=== PATIENT | female | born 1970 | race Caucasian/White ===

== ENCOUNTER 2016-06-23 15:11 | Emergency (ER) | payer OTHER ==
[2016-06-23] MEDS ORDERED: methylPREDNISolone SOD SUCCI 125 MG/2 ML VIAL IV STA (15:48)
[2016-06-23] MEDS ORDERED: FAMOTIDINE 20 MG/2 ML VIAL IV STA (15:49)
[2016-06-23] MEDS ORDERED: IPRATROPIUM-ALBUTEROL 3 ML NEB INHALATION STA ×3 (15:49→15:52)
[2016-06-23] MEDS ORDERED: diphenhydrAMINE 50 MG/ML 1 ML VIAL IVP STA (15:49)
--- NOTE | 2016-06-23 16:06 | ED ---
SOB HPI - General Chief Complaint: Shortness of Breath Stated Complaint: cough/poss reaction to dust Time Seen by Provider: 06/23/16 15:17 Source: patient Mode of arrival: wheelchair Limitations: no limitations - History of Present Illness Initial Comments: 45-year-old female with a past medical history of asthma with multiple environmental triggers presenting for evaluation of shortness of breath. She states that she was on her way to see her environmental communications specialist and got in the elevator which was filled with dust and chemicals from construction in and around the building. She states in the brief duration of the elevator ride she developed shortness of breath, wheezing, and an urticarial rash across her entire upper body. She was seen briefly by her environmental communications specialist who gave her a steroid depot shot, Benadryl, and a DuoNeb breathing treatment. Her symptoms improved but persisted and she was sent to the ED for further evaluation. She states that she has had similar attacks in the past but none were this bad. She further states that she was going to see her environmental communications specialist for a persistent cough over the last few weeks. She denies any productivity to the cough and that it is different than the current cough she has at this time. She has been trialed on 2 courses of a Z-Hernan and to Medrol Dosepak without improvement in her cough. - Related Data Home Medications Medication Instructions Recorded Confirmed Esomeprazole Magnesium [NexIUM] 40 mg PO DAILY PRN 02/24/16 06/23/16 Multivitamins, Thera [Multivitamin] 1 tab PO DAILY 02/24/16 06/23/16 Albuterol Inhaler [Ventolin Hfa 2 puff INHALATION RT-QID PRN 06/23/16 06/23/16 Inhaler] Albuterol Nebulized [Ventolin 2.5 mg INHALATION RT-QID PRN 06/23/16 06/23/16 Nebulized] Mometasone/Formoterol [Dulera 200 2 puff INHALATION RT-BID 06/23/16 06/23/16 Mcg/5 Mcg Inhaler] Previous Rx's Medication Instructions Recorded predniSONE 40 mg PO DAILY #10 tab 06/23/16 Allergies Allergy/AdvReac Type Severity Reaction Status Date / Time acetaminophen [From Vicodin] Allergy Rash/Hives Verified 06/23/16 15:33 cefazolin sodium Allergy Rash/Hives Verified 06/23/16 15:33 [From Kefzol] clarithromycin [From Biaxin] Allergy Rash/Hives Verified 06/23/16 15:33 fentanyl Allergy Rash/Hives Verified 06/23/16 15:33 hydrocodone bitartrate Allergy Rash/Hives Verified 06/23/16 15:33 [From Vicodin] morphine Allergy Rash/Hives Verified 06/23/16 15:33 pentazocine lactate Allergy Rash/Hives Verified 06/23/16 15:33 [From Talwin] Review of Systems ROS Statement: Those systems with pertinent positive or pertinent negative responses have been documented in the HPI. ROS Other: All systems not noted in ROS Statement are negative. Constitutional: Denies: fever, chills, weakness, weight change, night sweats Eyes: Denies: eye pain, eye discharge, vision change ENT: Denies: ear pain, throat pain, congestion Respiratory: Reports: cough, dyspnea, wheezes. Denies: hemoptysis, stridor Cardiovascular: Denies: chest pain, palpitations, dyspnea on exertion, edema, syncope Gastrointestinal: Denies: abdominal pain, nausea, vomiting Genitourinary: Denies: urgency, dysuria Musculoskeletal: Denies: back pain, arthralgia Skin: Reports: rash, lesions, change in color Neurological: Denies: headache, weakness, numbness, paresthesias Psychiatric: Denies: anxiety, depression Past Medical History Past Medical History: Asthma, Deep Vein Thrombosis (DVT), GERD/Reflux, Pneumonia Additional Past Medical History / Comment(s): migraines, hx dvt rt arm, anemia History of Any Multi-Drug Resistant Organisms: None Reported Past Surgical History: Appendectomy, Orthopedic Surgery, Tubal Ligation Additional Past Surgical History / Comment(s): left knee arthroscopy, left hand surgery-trigger finger Past Anesthesia/Blood Transfusion Reactions: Previous Problems w/ Anesthesia Additional Past Anesthesia/Blood Transfusion Reaction / Comment(s): "relaxing medication makes me more anxious" Past Psychological History: No Psychological Hx Reported Smoking Status: Never smoker Past Alcohol Use History: Occasional Past Drug Use History: None Reported - Past Family History Father Family Medical History: Cancer General Exam Limitations: no limitations General appearance: alert, in no apparent distress Head exam: Present: atraumatic, normocephalic, normal inspection Eye exam: Present: normal appearance, PERRL, EOMI Pupils: Present: normal accommodation. Absent: irregular, unequal ENT exam: Present: normal exam, normal oropharynx, mucous membranes moist. Absent: mucous membranes dry Neck exam: Present: normal inspection, full ROM. Absent: tenderness Respiratory exam: Present: wheezes (Bibasilar). Absent: respiratory distress ( Positive cough throughout exam), rhonchi, stridor, chest wall tenderness, accessory muscle use Cardiovascular Exam: Present: normal rhythm, tachycardia, normal heart sounds. Absent: irregular rhythm GI/Abdominal exam: Present: soft. Absent: distended, tenderness, guarding, rebound, rigid Rectal exam: Present: deferred Extremities exam: Present: normal inspection, full ROM. Absent: tenderness Back exam: Absent: normal inspection, full ROM, tenderness Neurological exam: Present: alert, altered, oriented X3, CN II-XII intact Skin exam: Present: warm, dry, intact, rash, erythema, urticaria. Absent: cyanosis, pallor Course Vital Signs 06/23/16 06/23/16 06/23/16 15:12 16:17 16:43 Temperature 97.7 F Pulse Rate 120 H 120 H 120 H Respiratory 24 Rate Blood Pressure 136/90 O2 Sat by Pulse 99 Oximetry 06/23/16 17:32 Temperature 98.1 F Pulse Rate 129 H Respiratory 20 Rate Blood Pressure 131/72 O2 Sat by Pulse 98 Oximetry Medical Decision Making - Medical Decision Making 45-year-old female with past medical history of asthma and multiple environmental ALLERGIES presented for evaluation of acute onset shortness of breath after coming in contact with airborne dust and chemicals inside an enclosed space (elevator). She was treated with Benadryl, DuoNeb, and depot steroids prior to coming to the ED with improvement in symptoms but persistent cough and tight sensation in chest. She has had previous asthma exacerbations similar to this although not quite as severe. Physical examination revealed mild wheezes in bilateral lower lobes, urticarial rash across the upper extremities, upper chest, and neck. Patient is coughing throughout exam but is in no respiratory distress and is able to hold conversation with complete sentences and without audible wheezing. There is no accessory muscle use. We' ll provide patient with DuoNeb treatments 3, Benadryl, Pepcid, and Solu- Medrol. We'll also obtain a chest x-ray as she states that although she has been treated with 2 doses of anabiotic some steroids prior to her visit today she has not had a chest x-ray and some time. Influenza swab will not be obtained today as she is outside to 48 hours and treatment would not be beneficial. Patient reevaluated and had marketed improvement in her symptoms. The rash had resolved and there were no more wheezes. Chest x-ray revealed no significant abnormalities. She was informed of this result and that she would be discharged with instructions to follow-up with her primary care physician and a repeat appointment with her environmental communications specialist. She will also be given a prescription for a five-day course of steroids and advised that on her return to the office she should take appropriate precautions to avoid any environmental allergens. She was also advised to return to this facility if her symptoms should return, worsen, or persist. She acknowledged an understanding of this information and agreed with this plan of care. Disposition Clinical Impression: Asthma exacerbation, Shortness of breath, Cough, Allergic reaction Disposition: HOME SELF-CARE Condition: Stable Instructions: Asthma (ED), Urticaria (ED), General Allergic Reaction (ED) Additional Instructions: Please use medication as discussed. Please follow up with family doctor if symptoms have not improved over the next two days. Please return to the emergency room if your symptoms increase or worsen or for any other concerns. Prescriptions: predniSONE 40 mg PO DAILY #10 tab Referrals: Nicola Villa MD [Primary Care Provider] - 1-2 days Time of Disposition: 17:18
--- NOTE | 2016-06-23 17:14 | XR ---
EXAMINATION TYPE: XR chest 2V DATE OF EXAM: 06/23/2016 5:06 PM COMPARISON: NONE HISTORY: Cough TECHNIQUE: Frontal and lateral views of the chest are obtained. FINDINGS: Heart and mediastinum are normal. Lungs are clear. Diaphragm is normal. Bony thorax is int act. Pulmonary vascularity is normal. IMPRESSION: Normal chest. No change.
[2016-06-23 17:34] VITALS: BP 131/72; PULSE 129; RESP 20; TEMP 98.1
== END 2016-06-23 17:34 | disposition home or self-care (01) ==
LOC: EC 15:11
DX: J45.901 Unspecified asthma with (acute) exacerbation (principal); T78.49XA Other allergy, initial encounter; X58.XXXA Exposure to other specified factors, initial encounter; L50.9 Urticaria, unspecified; Z88.6 Allergy status to analgesic agent; Z88.1 Allergy status to other antibiotic agents; Z88.5 Allergy status to narcotic agent; Z88.8 Allergy status to other drugs, medicaments and biological substances; Z86.718 Personal history of other venous thrombosis and embolism
CPT/HCPCS: 94640; 71020; 99285; 96374; 96375; J1200; J2930

== ENCOUNTER → 2016-07-12 | Outpatient (CLI) | payer OTHER ==
[2016-07-17 19:10] LABS: Alternaria tenius IgG 5.1 mcg/mL (< 13.6); Cladosporium herbarium IgG 22.7 mcg/mL (< 14.7); Phoma ssp. IgG 3.2 mcg/mL (< 6.6); Saccaharomospora viridis Not detected (Not detected); Saccaharopoly. rectivirgula Not detected (Not detected)
[2016-07-22 12:34] LABS: Mis test requested (Blood) FUNGAL ABS PANEL
== END ==
LOC: LABWHC1 11:42
PROVIDERS: ATTEND Internal Medicine Critical Care Medicine
DX: J45.909 Unspecified asthma, uncomplicated (principal)
CPT/HCPCS: 36415; 82785; 85008; 86001; 86606; 86609; 86612; 86635; 86698

== ENCOUNTER → 2016-08-09 | Outpatient (CLI) | payer OTHER ==
[2016-08-09 17:41] LABS: Clam IgE <0.10 kU/L; Egg White IgE <0.10 kU/L; Peanut IgE <0.10 kU/L; Scallop IgE <0.10 kU/L; Soybean IgE <0.10 kU/L
== END | disposition home or self-care (01) ==
LOC: LABWHC1 11:13
PROVIDERS: ATTEND Internal Medicine Critical Care Medicine
DX: J45.909 Unspecified asthma, uncomplicated (principal); T78.40XA Allergy, unspecified, initial encounter
CPT/HCPCS: 36415; 82785; 86003

== ENCOUNTER 2017-05-02 08:48 | Emergency (ER) | payer OTHER ==
[2017-05-02] MEDS ORDERED: SODIUM CHLORIDE 0.9% 1,000 ML IV STA ×2 (09:11→11:04)
[2017-05-02] MEDS ORDERED: methylPREDNISolone SOD SUCCI 125 MG/2 ML VIAL IV STA (09:11)
--- NOTE | 2017-05-02 09:21 | ED ---
General Adult HPI - General Chief complaint: Upper Respiratory Infection Stated complaint: Cough/foot pain Time Seen by Provider: 05/02/17 09:05 Source: patient, RN notes reviewed Mode of arrival: ambulatory Limitations: no limitations - History of Present Illness Initial comments: 46-year-old female who presents emergency room today with cough congestion over the last 2 days. Patient does admit to a history of walking pneumonia and states this feels similar. She does not that she's had some fevers and chills recently. States she did use her albuterol also took Sudafed this morning. She does admit to congestion with little sputum production at this time. Also admits that she dropped a can of food on her foot yesterday and does have pain over the first and third distal metatarsals. She denies any other complaints or symptoms at this time. Patient does much took Tylenol prior to arrival. Patient denies any recent fever, chills, shortness of breath, chest pain, back pain, abdominal pain, nausea or vomiting, numbness or tingling, dysuria or hematuria, constipation or diarrhea, headaches or visual changes, or any other complaints. - Related Data Home Medications Medication Instructions Recorded Confirmed Esomeprazole Magnesium [NexIUM] 40 mg PO DAILY PRN 02/24/16 05/02/17 Multivitamins, Thera [Multivitamin] 1 tab PO DAILY 02/24/16 05/02/17 Albuterol Inhaler [Ventolin Hfa 2 puff INHALATION RT-QID PRN 06/23/16 05/02/17 Inhaler] Albuterol Nebulized [Ventolin 2.5 mg INHALATION RT-QID PRN 06/23/16 05/02/17 Nebulized] Acetaminophen Tab [Tylenol Tab] 650 mg PO Q4H PRN 05/02/17 05/02/17 Pseudoephedrine HCl [Sudafed 240 mg PO DAILY PRN 05/02/17 05/02/17 24-Hour] Previous Rx's Medication Instructions Recorded Oseltamivir [Tamiflu] 75 mg PO Q12HR 5 Days cap 05/02/17 Allergies Allergy/AdvReac Type Severity Reaction Status Date / Time cefazolin sodium Allergy Rash/Hives Verified 05/02/17 09:23 [From Kefzol] clarithromycin [From Biaxin] Allergy Rash/Hives Verified 05/02/17 09:23 fentanyl Allergy Rash/Hives Verified 05/02/17 09:23 hydrocodone bitartrate Allergy Rash/Hives Verified 05/02/17 09:23 [From Vicodin] morphine Allergy Rash/Hives Verified 05/02/17 09:23 pear Allergy Unknown Verified 05/02/17 09:23 pentazocine lactate Allergy Rash/Hives Verified 05/02/17 09:23 [From Taldivina] Review of Systems ROS Statement: Those systems with pertinent positive or pertinent negative responses have been documented in the HPI. ROS Other: All systems not noted in ROS Statement are negative. Past Medical History Past Medical History: Asthma, Deep Vein Thrombosis (DVT), GERD/Reflux, Pneumonia Additional Past Medical History / Comment(s): migraines, hx dvt rt arm, anemia History of Any Multi-Drug Resistant Organisms: None Reported Past Surgical History: Appendectomy, Orthopedic Surgery, Tubal Ligation Additional Past Surgical History / Comment(s): left knee arthroscopy, left hand surgery-trigger finger Past Anesthesia/Blood Transfusion Reactions: Previous Problems w/ Anesthesia Additional Past Anesthesia/Blood Transfusion Reaction / Comment(s): "relaxing medication makes me more anxious" Past Psychological History: No Psychological Hx Reported Smoking Status: Never smoker Past Alcohol Use History: Occasional Past Drug Use History: None Reported - Past Family History Father Family Medical History: Cancer General Exam - General Exam Comments Initial Comments: General: The patient is awake and alert, in no distress, and does not appear acutely ill. Eye: Pupils are equal, round and reactive to light, extra-ocular movements are intact. No nystagmus. There is normal conjunctiva bilaterally. No signs of icterus. Ears, nose, mouth and throat: There are moist mucous membranes and no oral lesions. Neck: The neck is supple, there is no tenderness or JVD. Cardiovascular: Tachycardic. No murmur, rub or gallop is appreciated. Respiratory: Lungs are clear to auscultation, respirations are non-labored, breath sounds are equal. No wheezes, stridor, rales, or rhonchi. Musculoskeletal: Normal ROM, no tenderness. Strength 5/5. Sensation intact. Pulses equal bilaterally 2+. Neurological: A&O x 3. CN II-XII intact, There are no obvious motor or sensory deficits. Coordination appears grossly intact. Speech is normal. Skin: Skin is warm and dry and no rashes or lesions are noted. Psychiatric: Cooperative, appropriate mood & affect, normal judgment. Limitations: no limitations Course Vital Signs 05/02/17 05/02/17 08:51 11:15 Temperature 97.7 F Pulse Rate 132 H 122 H Respiratory 24 20 Rate Blood Pressure 130/84 137/93 O2 Sat by Pulse 100 96 Oximetry Medical Decision Making - Medical Decision Making Case discussed in detail with attending physician Dr. Baig. reexamined here the emergency room show no signs of distress. Her hemoglobin 8.9. Compared to previous hemoglobin from the office of Dr. Villa's joint hemoglobin 9.8 2014. Guaiac negative. Patient does admit that she does have a history of anemia does take iron. States currently just been taking iron daily multivitamin. She states that the iron supplements themselves were causing some constipation and she talked about this with family doctor. Patient states she has asked iron at home that she can take. Iron tests were added to patient's labs are currently pending. Patient's vitals does show tachycardia in the 140s. Currently 119 at this time. It was discussed with patient about the possibility of needing to be admitted. She states she would rather go home. Her labs are positive for influenza A. Remaining labs unremarkable. Chest x- ray negative. X-ray of the right foot is also negative. Patient started on Tamiflu here in the emergency room. She'll be discharged home continued on Tamiflu advised follow-up family doctor tomorrow. Advised return to emergency room if any symptoms increase worsen or for any other concerns. - Lab Data Result diagrams: 05/02/17 09:35 05/02/17 09:35 Lab Results 05/02/17 05/02/17 05/02/17 Range/Units 09:10 09:35 09:35 WBC 8.9 (3.8-10.6) k/uL RBC 5.08 (3.80-5.40) m/uL Hgb 8.9 L (11.4-16.0) gm/dL Hct 31.6 L (34.0-46.0) % MCV 62.2 L (80.0-100.0) fL MCH 17.5 L (25.0-35.0) pg MCHC 28.2 L (31.0-37.0) g/dL RDW 18.4 H (11.5-15.5) % Plt Count 415 (150-450) k/uL Neutrophils % 71 % Lymphocytes % 13 % Monocytes % 9 % Eosinophils % 3 % Basophils % 2 % Neutrophils # 6.3 (1.3-7.7) k/uL Lymphocytes # 1.2 (1.0-4.8) k/uL Monocytes # 0.8 (0-1.0) k/uL Eosinophils # 0.3 (0-0.7) k/uL Basophils # 0.1 (0-0.2) k/uL Hypochromasia Marked Poikilocytosis Slight Anisocytosis Slight Microcytosis Marked PT (9.0-12.0) sec INR (<1.2) APTT (22.0-30.0) sec D-Dimer (<0.60) mg/L FEU Sodium (137-145) mmol/L Potassium (3.5-5.1) mmol/L Chloride (98-107) mmol/L Carbon Dioxide (22-30) mmol/L Anion Gap mmol/L BUN (7-17) mg/dL Creatinine (0.52-1.04) mg/dL Est GFR (MDRD) Af Amer (>60 ml/min/1.73 sqM) Est GFR (MDRD) Non-Af (>60 ml/min/1.73 sqM) Glucose (74-99) mg/dL Plasma Lactic Acid Alfonso (0.7-2.0) mmol/L Calcium (8.4-10.2) mg/dL Total Bilirubin (0.2-1.3) mg/dL AST (14-36) U/L ALT (9-52) U/L Alkaline Phosphatase (38-126) U/L Total Creatine Kinase 50 (30-135) U/L CK-MB (CK-2) <0.2 (0.0-2.4) ng/mL CK-MB (CK-2) Rel Index Troponin I <0.012 (0.000-0.034) ng/mL Total Protein (6.3-8.2) g/dL Albumin (3.5-5.0) g/dL Urine HCG, Qual Not Detected (Not Detectd) Influenza Type A RNA (Not Detectd) Influenza Type B (PCR) (Not Detectd) 05/02/17 05/02/17 05/02/17 Range/Units 09:35 09:35 09:35 WBC (3.8-10.6) k/uL RBC (3.80-5.40) m/uL Hgb (11.4-16.0) gm/dL Hct (34.0-46.0) % MCV (80.0-100.0) fL MCH (25.0-35.0) pg MCHC (31.0-37.0) g/dL RDW (11.5-15.5) % Plt Count (150-450) k/uL Neutrophils % % Lymphocytes % % Monocytes % % Eosinophils % % Basophils % % Neutrophils # (1.3-7.7) k/uL Lymphocytes # (1.0-4.8) k/uL Monocytes # (0-1.0) k/uL Eosinophils # (0-0.7) k/uL Basophils # (0-0.2) k/uL Hypochromasia Poikilocytosis Anisocytosis Microcytosis PT 9.4 (9.0-12.0) sec INR 0.9 (<1.2) APTT 22.9 (22.0-30.0) sec D-Dimer 0.37 (<0.60) mg/L FEU Sodium 137 (137-145) mmol/L Potassium 4.9 (3.5-5.1) mmol/L Chloride 102 (98-107) mmol/L Carbon Dioxide 24 (22-30) mmol/L Anion Gap 11 mmol/L BUN 9 (7-17) mg/dL Creatinine 0.80 (0.52-1.04) mg/dL Est GFR (MDRD) Af Amer >60 (>60 ml/min/1.73 sqM) Est GFR (MDRD) Non-Af >60 (>60 ml/min/1.73 sqM) Glucose 101 H (74-99) mg/dL Plasma Lactic Acid Alfonso 1.7 (0.7-2.0) mmol/L Calcium 9.4 (8.4-10.2) mg/dL Total Bilirubin 0.2 (0.2-1.3) mg/dL AST 31 (14-36) U/L ALT 58 H (9-52) U/L Alkaline Phosphatase 64 (38-126) U/L Total Creatine Kinase (30-135) U/L CK-MB (CK-2) (0.0-2.4) ng/mL CK-MB (CK-2) Rel Index Troponin I (0.000-0.034) ng/mL Total Protein 7.1 (6.3-8.2) g/dL Albumin 3.9 (3.5-5.0) g/dL Urine HCG, Qual (Not Detectd) Influenza Type A RNA (Not Detectd) Influenza Type B (PCR) (Not Detectd) 05/02/17 Range/Units 09:35 WBC (3.8-10.6) k/uL RBC (3.80-5.40) m/uL Hgb (11.4-16.0) gm/dL Hct (34.0-46.0) % MCV (80.0-100.0) fL MCH (25.0-35.0) pg MCHC (31.0-37.0) g/dL RDW (11.5-15.5) % Plt Count (150-450) k/uL Neutrophils % % Lymphocytes % % Monocytes % % Eosinophils % % Basophils % % Neutrophils # (1.3-7.7) k/uL Lymphocytes # (1.0-4.8) k/uL Monocytes # (0-1.0) k/uL Eosinophils # (0-0.7) k/uL Basophils # (0-0.2) k/uL Hypochromasia Poikilocytosis Anisocytosis Microcytosis PT (9.0-12.0) sec INR (<1.2) APTT (22.0-30.0) sec D-Dimer (<0.60) mg/L FEU Sodium (137-145) mmol/L Potassium (3.5-5.1) mmol/L Chloride (98-107) mmol/L Carbon Dioxide (22-30) mmol/L Anion Gap mmol/L BUN (7-17) mg/dL Creatinine (0.52-1.04) mg/dL Est GFR (MDRD) Af Amer (>60 ml/min/1.73 sqM) Est GFR (MDRD) Non-Af (>60 ml/min/1.73 sqM) Glucose (74-99) mg/dL Plasma Lactic Acid Alfonso (0.7-2.0) mmol/L Calcium (8.4-10.2) mg/dL Total Bilirubin (0.2-1.3) mg/dL AST (14-36) U/L ALT (9-52) U/L Alkaline Phosphatase (38-126) U/L Total Creatine Kinase (30-135) U/L CK-MB (CK-2) (0.0-2.4) ng/mL CK-MB (CK-2) Rel Index Troponin I (0.000-0.034) ng/mL Total Protein (6.3-8.2) g/dL Albumin (3.5-5.0) g/dL Urine HCG, Qual (Not Detectd) Influenza Type A RNA Detected H (Not Detectd) Influenza Type B (PCR) Not Detected (Not Detectd) Disposition Clinical Impression: Influenza A, Anemia, Tachycardia Disposition: HOME SELF-CARE Condition: Good Instructions: Influenza (ED) Additional Instructions: Please use medication as discussed. Please follow-up with family doctor in the next 2 days. Please return to emergency room if the symptoms increase or worsen or for any other concerns. Prescriptions: Oseltamivir [Tamiflu] 75 mg PO Q12HR 5 Days cap Referrals: Nicola Villa MD [Primary Care Provider] - 1-2 days Time of Disposition: 12:09
[2017-05-02 10:00] LABS: Anisocytosis Slight; Basophils # (A) 0.1 k/uL (0-0.2); Basophils % (A) 2 %; Eosinophils # (A) 0.3 k/uL (0-0.7); Eosinophils % (A) 3 %; HCT 31.6 % (34.0-46.0); HGB 8.9 gm/dL (11.4-16.0); Hypochromasia Marked; Lymphocytes # (A) 1.2 k/uL (1.0-4.8); Lymphocytes % (A) 13 %; MCH 17.5 pg (25.0-35.0); MCHC 28.2 g/dL (31.0-37.0); MCV 62.2 fL (80.0-100.0); Mean Platelet Volume 6.8; Microcytosis Marked; Monocytes # (A) 0.8 k/uL (0-1.0); Monocytes % (A) 9 %; Neutrophils # (A) 6.3 k/uL (1.3-7.7); Neutrophils % (A) 71 %; Platelet Count 415 k/uL (150-450); Poikilocytosis Slight; RBC 5.08 m/uL (3.80-5.40); RDW 18.4 % (11.5-15.5); WBC 8.9 k/uL (3.8-10.6)
[2017-05-02 10:08] LABS: ALT 58 U/L (9-52); AST 31 U/L (14-36); Albumin 3.9 g/dL (3.5-5.0); Alkaline Phosphatase 64 U/L (38-126); Anion Gap 11 mmol/L; Blood Urea Nitrogen 9 mg/dL (7-17); Calcium 9.4 mg/dL (8.4-10.2); Carbon Dioxide 24 mmol/L (22-30); Chloride 102 mmol/L (98-107); Glucose 101 mg/dL (74-99); Potassium 4.9 mmol/L (3.5-5.1); Sodium 137 mmol/L (137-145); Total Bilirubin 0.2 mg/dL (0.2-1.3); Total Protein 7.1 g/dL (6.3-8.2)
[2017-05-02 10:09] LABS: D-Dimer 0.37 mg/L FEU (<0.60)
[2017-05-02 10:14] LABS: INR 0.9 (<1.2); Partial Thromboplastin Time 22.9 sec (22.0-30.0); Prothrombin Time 9.4 sec (9.0-12.0)
--- NOTE | 2017-05-02 10:19 | XR ---
EXAMINATION TYPE: XR chest 2V DATE OF EXAM: 05/02/2017 COMPARISON: 06/23/2016 HISTORY: Cough and congestion for 3 days TECHNIQUE: Frontal and lateral views of the chest are obtained. FINDINGS: There is no focal air space opacity, pleural effusion, or pneumothorax seen. The cardiac silhouette size is within normal limits. The osseous structures are intact. Mild multilevel degener ative changes of thoracic spine are noted. IMPRESSION: No acute cardiopulmonary process, unchanged from the prior.
--- NOTE | 2017-05-02 10:22 | XR ---
EXAMINATION TYPE: XR foot complete RT DATE OF EXAM: 05/02/2017 CLINICAL HISTORY: Right foot pain after a jar fell on the patient's foot. TECHNIQUE: Frontal, lateral, and oblique images of the right foot are obtained. COMPARISON: None FINDINGS: There is no acute fracture/dislocation evident in the right foot. Joint space narrowing an d opposing surface sclerosis are seen at the first metatarsophalangeal joint. Medial to the talonavic ular joint small ossicles are unchanged from the prior exam of 03/26/2014.. The overlying soft tissu e appears unremarkable. IMPRESSION: 1. There is no acute fracture or dislocation in the right foot. 2. Mild right first metatarsophalangeal arthropathy.
[2017-05-02 10:27] LABS: Creatine Kinase 50 U/L (30-135)
[2017-05-02 10:40] LABS: Creatine Kinase MB <0.2 ng/mL (0.0-2.4); Troponin I <0.012 ng/mL (0.000-0.034)
[2017-05-02] MEDS ORDERED: IBUPROFEN 600 MG TAB PO STA (11:05)
[2017-05-02] MEDS ORDERED: OSELTAMIVIR 75 MG CAP PO STA (11:05)
[2017-05-02 17:07] LABS: Iron Saturation 2.6 (12.00-45.00)
[2017-05-03 22:58] VITALS: BP 136/82; PULSE 124; RESP 20; TEMP 99
== END 2017-05-02 12:32 | disposition home or self-care (01) ==
LOC: EC 08:48
DX: J10.1 Influenza due to other identified influenza virus with other respiratory manifestations (principal); D64.9 Anemia, unspecified; R00.0 Tachycardia, unspecified; K59.00 Constipation, unspecified; M79.671 Pain in right foot; Z88.1 Allergy status to other antibiotic agents; Z88.5 Allergy status to narcotic agent; Z91.018 Allergy to other foods
CPT/HCPCS: 99284; 96374; 96361 ×2; 36415; 85379; 80053; 82728; 82550; 82553; 83540; 83550; 83605; 84484; 85025; 85610; 85730; 81025; 87040; 87502; 73630; 71046; J2930

== ENCOUNTER 2017-12-20 17:56 | Inpatient (IN) | payer BC, OTHER ==
[2017-12-20] MEDS ORDERED: predniSONE 10 MG TAB PO STA (18:30)
[2017-12-20] MEDS ORDERED: SODIUM CHLORIDE 0.9% 1,000 ML IV STA (18:30)
--- NOTE | 2017-12-20 18:51 | ED ---
ENT HPI - General Source: patient, RN notes reviewed Mode of arrival: ambulatory Limitations: no limitations <Dione Donis - Last Filed: 12/21/17 01:24> <Shirley Hillman - Last Filed: 12/22/17 08:45> - General Chief complaint: ENT Stated complaint: sore throat Time Seen by Provider: 12/20/17 18:17 - History of Present Illness Initial comments: This a 46-year-old female past medical history of previous DVT, anemia, asthma and GERD who presents today for chief complaint of sore throat 2 days. Patient states that she noticed her throat was sore 2 days ago and admitted to pain with swallowing patient stated that she went to [facility] ER, where she was diagnosed with a viral pharyngitis. She was given a one-time dose of Decadron and amoxicillin while in the emergency department there, however she is not discharged with antibiotics warm steroids and was given ibuprofen 800 mg odynophagia. Patient states that she has not taken ibuprofen 800s because they' re large pills in the her when she swallows them, in addition for the past day patient has refused to drink water because she states it hurts her throat. Patient admits to some difficulty swallowing due to pain, chills, right-sided neck swelling, and the feeling of throat fullness. Patient denies trismus, difficulty breathing, drooling, shortness of breath, chest pain, back pain, abdominal pain, nausea or vomiting, numbness or tingling, dysuria or hematuria, constipation or diarrhea, headaches or visual changes, or any other complaints. Upon arrival to the ED pt afebrile, VS stable. (Dione Donis) - Related Data Home Medications Medication Instructions Recorded Confirmed Multivitamins, Thera [Multivitamin] 1 tab PO DAILY 02/24/16 12/20/17 Cranberry Fruit Concentrate 450 mg PO DAILY 12/20/17 12/20/17 [Cranberry] Esomeprazole Magnesium [NexIUM 20 mg PO DAILY PRN 12/20/17 12/20/17 24Hr] Ferrous Sulfate [Feosol] 325 mg PO DAILY 12/20/17 12/20/17 Loratadine [Claritin] 10 mg PO DAILY 12/20/17 12/20/17 Allergies Allergy/AdvReac Type Severity Reaction Status Date / Time cefazolin sodium Allergy Rash/Hives Verified 12/20/17 18:59 [From Kefzol] clarithromycin [From Biaxin] Allergy Rash/Hives Verified 12/20/17 18:59 fentanyl Allergy Rash/Hives Verified 12/20/17 18:59 hydrocodone bitartrate Allergy Rash/Hives Verified 12/20/17 18:59 [From Vicodin] morphine Allergy Rash/Hives Verified 12/20/17 18:59 pear Allergy Unknown Verified 12/20/17 18:59 pentazocine lactate Allergy Rash/Hives Verified 12/20/17 18:59 [From Talwin] Review of Systems ROS Other: All systems not noted in ROS Statement are negative. Constitutional: Reports: fever (pt states she has felt like she had had fevers) , chills Eyes: Denies: eye pain, vision change ENT: Reports: throat pain. Denies: ear pain Respiratory: Denies: cough, dyspnea, wheezes, hemoptysis, stridor Cardiovascular: Denies: chest pain, palpitations Gastrointestinal: Denies: abdominal pain, nausea, vomiting, diarrhea, constipation Genitourinary: Denies: urgency, dysuria Musculoskeletal: Denies: back pain Skin: Denies: rash, lesions Neurological: Denies: headache, weakness, numbness, paresthesias, confusion, abnormal gait, vertigo <Dione Donis L - Last Filed: 12/21/17 01:24> ROS Other: All systems not noted in ROS Statement are negative. <Shirley Hillman - Last Filed: 12/22/17 08:45> ROS Statement: Those systems with pertinent positive or pertinent negative responses have been documented in the HPI. Past Medical History Past Medical History: Asthma, Deep Vein Thrombosis (DVT), GERD/Reflux, Pneumonia Additional Past Medical History / Comment(s): migraines, hx dvt rt arm, anemia History of Any Multi-Drug Resistant Organisms: None Reported Past Surgical History: Appendectomy, Orthopedic Surgery, Tubal Ligation Additional Past Surgical History / Comment(s): left knee arthroscopy, left hand surgery-trigger finger Past Anesthesia/Blood Transfusion Reactions: Previous Problems w/ Anesthesia Additional Past Anesthesia/Blood Transfusion Reaction / Comment(s): "relaxing medication makes me more anxious" Past Psychological History: No Psychological Hx Reported Smoking Status: Never smoker Past Alcohol Use History: Occasional Past Drug Use History: None Reported - Past Family History Father Family Medical History: Cancer <Dioen Donis - Last Filed: 12/21/17 01:24> General Exam Limitations: no limitations <Dione Donis - Last Filed: 12/21/17 01:24> <Shirley Hillman - Last Filed: 12/22/17 08:45> - General Exam Comments Initial Comments: General: The patient is awake and alert. Pt appear non toxic, but uncomfortable. No signs of respiratory distress. Eye: Pupils are equal, round and reactive to light, extra-ocular movements are intact. No nystagmus. There is normal conjunctiva bilaterally. No signs of icterus. Ears, nose, mouth and throat: There are moist mucous membranes. Erythematous oropharynx. Enlarged, erythematous tonsils bilaterally with white tonsillar exudates and crypts. No uvula deviation, uvula midline. No obvious peritonsillar or retropharyngeal abscess visible. Neck: Right-sided neck swelling, with palpable anterior cervical lymphadenopathy. No palpable posterior cervical lymph nodes 3. Cardiovascular: There is a regular rate and rhythm. No murmur, rub or gallop is appreciated. Respiratory: Lungs are clear to auscultation, respirations are non-labored, breath sounds are equal. No wheezes, stridor, rales, or rhonchi. Musculoskeletal: Normal ROM, no tenderness. Strength 5/5. Sensation intact. + 2 radial pulses equal bilaterally 2+. Neurological: A&O x 3. CN II-XII intact, There are no obvious motor or sensory deficits. Coordination appears grossly intact. Speech is normal. Skin: Skin is warm and dry and no rashes or lesions are noted. Skin turgor recoil delayed. Psychiatric: Cooperative, appropriate mood & affect, normal judgment. (Dione Donis [employer]) Vital Signs 12/20/17 12/20/17 12/20/17 17:58 20:24 21:51 Temperature 98.2 F 98.3 F Pulse Rate 101 H 99 98 Respiratory 20 18 18 Rate Blood Pressure 143/98 130/76 151/81 O2 Sat by Pulse 98 99 96 Oximetry 12/20/17 12/20/17 22:30 23:24 Temperature 97.9 F Pulse Rate 104 H 99 Respiratory 18 16 Rate Blood Pressure 187/86 167/85 O2 Sat by Pulse 91 L 91 L Oximetry Medical Decision Making - Lab Data Result diagrams: 12/20/17 18:15 12/20/17 18:15 <Dione Donis L - Last Filed: 12/21/17 01:24> - Lab Data Result diagrams: 12/20/17 18:15 12/20/17 18:15 <Mor Hillmanssica P - Last Filed: 12/22/17 08:45> - Medical Decision Making 46yo female presenting with sore throat and right sided neck swelling concerning for peritonsillar abscess or deep neck infection. Physical examination revealed right sided neck swelling with erythematous bilaterally enlarged tonsills with white tonsillar exudates and crypts. uvula midline. palpable anterior cervical lymphadenopathy. Pt was complaining of "neck fullness " at time of examination, no signs of respiratory distress, stridor, drooling, trismus or tripoding. CBC, CMP, UA, Heterophile, Rapid strep testing, Lactic acid, UA, CXR and blood cultures obtained. CBC returned elevated at 24.5, HgB 10.3 however pt has chronic anemia and she states it normally drops around that level when she just finishes menstruation. Remainder of laboratory testing WNL, CXR without acute cardiopulmonary process, (-) heterophile and rapid strep testing. CT of the soft tissues of the neck were obtained due to pt symptoms and elevated WBC. Pt was given 30mg PO prednisone and 1,000mL bolus of 0.9% NS. Patient was complaining of pain in throat and was given an IV push of Toradol. Patient stated helped minimally. CT results returned revealing right tonsillar pilar abscess extending caudally to the level of the right piriform sinus. The margins of the process appear to be 6 cm x 34 cm in the axial cross-section. Case is discussed in detail with Dr. Hillman. Pt given 1mg dilaudid for pain mgmt. Dr. Huynh ENT staff physician was consulted, who presented for best side I&D. I&D was performed around 10:30pm. There was no fluculant pocket drained at that time. Dr. Whitaker requested 2mg dilaudid at that time for pain mgmt. Pt felt nausea following the procedure and weas given 4mg IVP of zofran. Dr. Huynh felt pt needed to be admitted for peritonsillar abscess/ cellulitis where she will receive IV ABX, steroids, pain mgmt and close monitoring. Dr. Huynh gave me detailed instruction for admission orders this included 900mg cleomycin q8h, RETAIL FIELD MERCHANDISER pump-as ordered for pain management, decadron, ofirmev, zofran and restoril- he gave distinct instrutions with exact dosages. Pt was started on 150ml/hr LR and order NPO with ice chip privledges. Pharmacy called with questions about decadron order, they spoke to Dr. Huynh directly around 10:50 for direct instruction. Pt was discharged to floor with O2 in stable condition. (Dione Donis) I personally saw and evaluated the patient, I reviewed the CT which reveals marked tonsillar pillar cellulitis versus abscess. I discussed this with ENT rehabilitation technician who came to the ER and attempted drainage. They were unsuccessful. They plan for admission with IV antibiotics and pain management. (Shirley Hillman) - Lab Data Lab Results 12/20/17 12/20/17 12/20/17 Range/Units 18:15 18:15 19:15 WBC 24.5 H (3.8-10.6) k/uL RBC 4.98 (3.80-5.40) m/uL Hgb 10.3 L (11.4-16.0) gm/dL Hct 33.0 L (34.0-46.0) % MCV 66.3 L (80.0-100.0) fL MCH 20.7 L (25.0-35.0) pg MCHC 31.3 (31.0-37.0) g/dL RDW 16.7 H (11.5-15.5) % Plt Count 607 H (150-450) k/uL Neutrophils % 77 % Lymphocytes % 14 % Monocytes % 7 % Eosinophils % 1 % Basophils % 1 % Neutrophils # 18.8 H (1.3-7.7) k/uL Lymphocytes # 3.4 (1.0-4.8) k/uL Monocytes # 1.7 H (0-1.0) k/uL Eosinophils # 0.1 (0-0.7) k/uL Basophils # 0.1 (0-0.2) k/uL Hypochromasia Marked Anisocytosis Slight Microcytosis Marked Sodium 139 (137-145) mmol/L Potassium 4.1 (3.5-5.1) mmol/L Chloride 104 (98-107) mmol/L Carbon Dioxide 25 (22-30) mmol/L Anion Gap 10 mmol/L BUN 13 (7-17) mg/dL Creatinine 0.90 (0.52-1.04) mg/dL Est GFR (CKD-EPI)AfAm 89 (>60 ml/min/1.73 sqM) Est GFR (CKD-EPI)NonAf 77 (>60 ml/min/1.73 sqM) Glucose 102 H (74-99) mg/dL Plasma Lactic Acid Alfonso (0.7-2.0) mmol/L Calcium 9.2 (8.4-10.2) mg/dL Total Bilirubin 0.4 (0.2-1.3) mg/dL AST 24 (14-36) U/L ALT 44 (9-52) U/L Alkaline Phosphatase 72 (38-126) U/L Total Protein 7.4 (6.3-8.2) g/dL Albumin 4.0 (3.5-5.0) g/dL Urine Color Urine Appearance (Clear) Urine pH (5.0-8.0) Ur Specific [place] (1.001-1.035) Urine Protein (Negative) Urine Glucose (UA) (Negative) Urine Ketones (Negative) Urine Blood (Negative) Urine Nitrite (Negative) Urine Bilirubin (Negative) Urine Urobilinogen (<2.0) mg/dL Ur Leukocyte Esterase (Negative) Urine RBC (0-5) /hpf Urine WBC (0-5) /hpf Ur Squamous Epith Cells (0-4) /hpf Urine HCG, Qual (Not Detectd) Heterophile Antibody Negative (Negative) Group A Strep Rapid (Negative) 12/20/17 12/20/17 12/20/17 Range/Units 19:15 19:15 19:50 WBC (3.8-10.6) k/uL RBC (3.80-5.40) m/uL Hgb (11.4-16.0) gm/dL Hct (34.0-46.0) % MCV (80.0-100.0) fL MCH (25.0-35.0) pg MCHC (31.0-37.0) g/dL RDW (11.5-15.5) % Plt Count (150-450) k/uL Neutrophils % % Lymphocytes % % Monocytes % % Eosinophils % % Basophils % % Neutrophils # (1.3-7.7) k/uL Lymphocytes # (1.0-4.8) k/uL Monocytes # (0-1.0) k/uL Eosinophils # (0-0.7) k/uL Basophils # (0-0.2) k/uL Hypochromasia Anisocytosis Microcytosis Sodium (137-145) mmol/L Potassium (3.5-5.1) mmol/L Chloride (98-107) mmol/L Carbon Dioxide (22-30) mmol/L Anion Gap mmol/L BUN (7-17) mg/dL Creatinine (0.52-1.04) mg/dL Est GFR (CKD-EPI)AfAm (>60 ml/min/1.73 sqM) Est GFR (CKD-EPI)NonAf (>60 ml/min/1.73 sqM) Glucose (74-99) mg/dL Plasma Lactic Acid Alfonso 0.8 (0.7-2.0) mmol/L Calcium (8.4-10.2) mg/dL Total Bilirubin (0.2-1.3) mg/dL AST (14-36) U/L ALT (9-52) U/L Alkaline Phosphatase (38-126) U/L Total Protein (6.3-8.2) g/dL Albumin (3.5-5.0) g/dL Urine Color Urine Appearance (Clear) Urine pH (5.0-8.0) Ur Specific [place] (1.001-1.035) Urine Protein (Negative) Urine Glucose (UA) (Negative) Urine Ketones (Negative) Urine Blood (Negative) Urine Nitrite (Negative) Urine Bilirubin (Negative) Urine Urobilinogen (<2.0) mg/dL Ur Leukocyte Esterase (Negative) Urine RBC (0-5) /hpf Urine WBC (0-5) /hpf Ur Squamous Epith Cells (0-4) /hpf Urine HCG, Qual Not Detected (Not Detectd) Heterophile Antibody (Negative) Group A Strep Rapid Negative (Negative) 12/20/17 Range/Units 19:50 WBC (3.8-10.6) k/uL RBC (3.80-5.40) m/uL Hgb (11.4-16.0) gm/dL Hct (34.0-46.0) % MCV (80.0-100.0) fL MCH (25.0-35.0) pg MCHC (31.0-37.0) g/dL RDW (11.5-15.5) % Plt Count (150-450) k/uL Neutrophils % % Lymphocytes % % Monocytes % % Eosinophils % % Basophils % % Neutrophils # (1.3-7.7) k/uL Lymphocytes # (1.0-4.8) k/uL Monocytes # (0-1.0) k/uL Eosinophils # (0-0.7) k/uL Basophils # (0-0.2) k/uL Hypochromasia Anisocytosis Microcytosis Sodium (137-145) mmol/L Potassium (3.5-5.1) mmol/L Chloride (98-107) mmol/L Carbon Dioxide (22-30) mmol/L Anion Gap mmol/L BUN (7-17) mg/dL Creatinine (0.52-1.04) mg/dL Est GFR (CKD-EPI)AfAm (>60 ml/min/1.73 sqM) Est GFR (CKD-EPI)NonAf (>60 ml/min/1.73 sqM) Glucose (74-99) mg/dL Plasma Lactic Acid Alfonso (0.7-2.0) mmol/L Calcium (8.4-10.2) mg/dL Total Bilirubin (0.2-1.3) mg/dL AST (14-36) U/L ALT (9-52) U/L Alkaline Phosphatase (38-126) U/L Total Protein (6.3-8.2) g/dL Albumin (3.5-5.0) g/dL Urine Color Light Yellow Urine Appearance Clear (Clear) Urine pH 7.0 (5.0-8.0) Ur Specific [place] >1.050 H (1.001-1.035) Urine Protein Negative (Negative) Urine Glucose (UA) Negative (Negative) Urine Ketones Negative (Negative) Urine Blood Small H (Negative) Urine Nitrite Negative (Negative) Urine Bilirubin Negative (Negative) Urine Urobilinogen <2.0 (<2.0) mg/dL Ur Leukocyte Esterase Negative (Negative) Urine RBC 2 (0-5) /hpf Urine WBC 1 (0-5) /hpf Ur Squamous Epith Cells 4 (0-4) /hpf Urine HCG, Qual (Not Detectd) Heterophile Antibody (Negative) Group A Strep Rapid (Negative) Disposition Is patient prescribed a controlled substance at d/c from ED?: No Time of Disposition: 01:01 Decision Date: 12/20/17 (Dr. Huynh made decision to admit ) Decision Time: 23:00 <Dione Donis - Last Filed: 12/21/17 01:24> <Shirley Hillman - Last Filed: 12/22/17 08:45> Clinical Impression: Peritonsillar abscess, Peritonsillar cellulitis Disposition: ADMITTED IP TO THIS HOSP Condition: Stable
[2017-12-20 18:52] LABS: Anisocytosis Slight; Basophils # (A) 0.1 k/uL (0-0.2); Basophils % (A) 1 %; Eosinophils # (A) 0.1 k/uL (0-0.7); Eosinophils % (A) 1 %; HGB 10.3 gm/dL (11.4-16.0); Hypochromasia Marked; Lymphocytes # (A) 3.4 k/uL (1.0-4.8); Lymphocytes % (A) 14 %; MCH 20.7 pg (25.0-35.0); MCHC 31.3 g/dL (31.0-37.0); MCV 66.3 fL (80.0-100.0); Mean Platelet Volume 6.8; Microcytosis Marked; Monocytes # (A) 1.7 k/uL (0-1.0); Monocytes % (A) 7 %; Neutrophils # (A) 18.8 k/uL (1.3-7.7); Neutrophils % (A) 77 %; Platelet Count 607 k/uL (150-450); RBC 4.98 m/uL (3.80-5.40); RDW 16.7 % (11.5-15.5); WBC 24.5 k/uL (3.8-10.6)
[2017-12-20 19:10] LABS: Calcium 9.2 mg/dL (8.4-10.2); Potassium 4.1 mmol/L (3.5-5.1); Total Bilirubin 0.4 mg/dL (0.2-1.3); Total Protein 7.4 g/dL (6.3-8.2)
--- NOTE | 2017-12-20 19:54 | XR ---
EXAMINATION: XR chest 2V DATE AND TIME: 12/20/2017 7:08 PM CLINICAL INDICATION: Pain TECHNIQUE: PA and lateral COMPARISON: 05/02/2017 FINDINGS: The lungs are clear. The pleural spaces are negative. The cardiac silhouette is not enlarged. The remainder of the mediastinal silhouette is unremarkable. The skeletal structures and soft tissues are negative for acute findings. IMPRESSION: NO ACUTE PROCESS.
[2017-12-20] MEDS ORDERED: KETOROLAC 30 MG/ML 1 ML VIAL IVP STA (20:06)
[2017-12-20 20:08] LABS: Appearance,Urine Clear (Clear); Bilirubin,Urine Negative (Negative); Blood,Urine Small (Negative); Color,Urine Light Yellow; Glucose,Urine (UA) Negative (Negative); Ketones,Urine Negative (Negative); Leukocyte Esterase,Urine Negative (Negative); Nitrite,Urine Negative (Negative); Protein,Urine Negative (Negative); RBC,Urine 2 /hpf (0-5); Squamous Epithelial Cell,Urine 4 /hpf (0-4); Urobilinogen,Urine <2.0 mg/dL (<2.0); WBC,Urine 1 /hpf (0-5)
[2017-12-20 20:38] LABS: Specific Gravity,Urine >1.050 (1.001-1.035)
--- NOTE | 2017-12-20 20:59 | CT ---
EXAMINATION TYPE: CT soft tissue neck w con DATE OF EXAM: 12/20/2017 7:38 PM COMPARISON: None HISTORY: Throat swelling and difficulty swallowing x3 days. CT DLP: 474.4 mGycm Automated exposure control for dose reduction was used. CONTRAST: CT scan of the neck is performed following with IV Contrast, patient injected with 100ml mL of Isovue 300. Axial images are obtained, coronal and sagittal reformatted images are reviewed. FINDINGS: There is a complex right parapharyngeal fluid collection extending from the right tonsillar pillar caudally to the level of the right piriform sinus. This complex fluid collection has partial rim enhancement, a few tiny gas bubbles, and markedly ill-defined margins. The fluid density measures approximately 6 cm CC by 1 x 2 cm in axial cross section. The margins of the process measures approx imately 6 cm CC by 3 x 4 cm in axial cross section. This process flattens the right margin of the airway from the level of the uvula to the level of the cricoid cartilage. All cartilage is intact. All skeletal structures are intact. All vasculature is intact. There are a few scattered subcentimeter bilateral cervical lymph nodes, likely reactive. No other findings. IMPRESSION: RIGHT TONSILLAR PILLAR ABSCESS EXTENDING CAUDALLY TO THE LEVEL OF THE RIGHT PIRIFORM SINUS.
[2017-12-20] MEDS ORDERED: CLINDAMYCIN 600 MG in DEXTROSE 5% IN WATER 50 ML IVPB STA ×2 (21:24)
[2017-12-20] MEDS ORDERED: HYDROmorphone 1 MG/ML 1 ML SYRINGE IVP STA ×2 (21:25→22:20)
[2017-12-20] MEDS ORDERED: LIDOCAINE 1% INJ 10MG/ML (20 ML MDV) SQ ONE (21:26)
[2017-12-20] MEDS ORDERED: SODIUM CHLORIDE 0.9% 500 ML IV ONE (21:27)
[2017-12-20] MEDS ORDERED: ONDANSETRON 4 MG/2 ML VIAL IVP STA (22:19)
[2017-12-20] MEDS ORDERED: NALOXONE 0.4 MG/ML 1 ML VIAL IV PRN (22:29)
[2017-12-20] MEDS ORDERED: HYDROmorphone PCA 5 MG/25 ML SYRINGE IV PRN (22:29)
[2017-12-21] MEDS: ONDANSETRON 4 MG/2 ML VIAL IVP SCH ×3 (00:02→12:50)
[2017-12-21] MEDS: ACETAMINOPHEN IV (For NPO) 1,000 MG in EMPTY BAG 1 BAG IVPB SCH ×4 (00:33→18:06)
[2017-12-21] MEDS: diphenhydrAMINE 50 MG/ML 1 ML VIAL IVP PRN ×2 (01:57→21:40)
[2017-12-21] MEDS: KETOROLAC 30 MG/ML 1 ML VIAL IVP SCH ×4 (02:01→17:34)
[2017-12-21] MEDS: DEXAMETHASONE SOD PHOSPHATE 10 MG/ML 1 ML VIAL IV SCH ×4 (02:27→17:33)
[2017-12-21] MEDS: CLINDAMYCIN 900 MG in DEXTROSE 5% IN WATER 50 ML IVPB SCH ×6 (04:17→20:37)
--- NOTE | 2017-12-21 05:18 | HP ---
HISTORY AND PHYSICAL DATE OF ADMISSION: 12/20/2017 CHIEF COMPLAINT: Severe right-sided sore throat. HISTORY OF PRESENT ILLNESS: The patient is a pleasant 46-year-old female who was seen in the emergency room on the evening of 12/20/2017, complaining of a severe right-sided sore throat. The patient states that several days prior to coming to the emergency room she was seen in an urgent care center in [place], [place] and at that time, she received minimal care, that say she underwent a strep screen which was negative and was given an oral dose of amoxicillin. She was not given any intravenous antibiotics. She was discharged home and returned the next day and again was not given any intravenous antibiotics, but was given an oral dose of Decadron and apparently sent home on Motrin 800 mg. Her right-sided throat pain and swelling advanced and the patient subsequently presented to [facility]. She was examined by Dr. Hillman and also by her PA and it was felt that she might possibly have a right peritonsillar abscess. A CT scan of the neck confirmed a small right tonsil abscess, which was quite linear that is to say it was not the usual type of peritonsillar abscess location mainly in the peritonsillar area, but actually was rather slender on the CT scan and extended down to the right piriform sinus. There was no compromise of the patient's airway and the patient does not have any respiratory difficulty, voice changes, trismus, etc. She states that it is somewhat painful swallowing. Therefore, she has not been eating very much. She is a nonsmoker. She does not have a history of recurrent tonsillitis as an adult. PAST MEDICAL HISTORY: Past medical history reveals she has multiple allergies to DILAUDID, FENTANYL, VICODIN, TALWIN, KEFZOL, and MORPHINE. She apparently received several doses of DILAUDID in the emergency room and subsequently developed itching from this. In addition to this she was ordered a RESEARCH INSTRUMENTATION TECHNICIAN pump after admission to the hospital and again developed further itching and this was discontinued. She states she is also allergic to MORPHINE. Her only home medication is Nexium. REVIEW OF SYSTEMS: The review of systems is essentially unremarkable. PHYSICAL EXAMINATION: Again, this is a very pleasant 46-year-old female who was alert and cooperative and is in no acute distress at this time. She is not experiencing any evidence of any trismus or airway problems. HEENT: Patient is normocephalic. Tympanic membranes normal. Pupils equal, round, react to light and accommodation. Intranasal examination reveals mild septal deviation. Examination of oropharynx reveals 3+ tonsillar hypertrophy with exudate noted on the right tonsil. However, it is also to be noted that the right tonsil does not appear to be pushed to the midline which would normally be seen with a true peritonsillar abscess. Palpation of the neck only shows moderate tenderness, but no actual fluctuance. Palpation of the of the posterior pharynx with the tongue blade does not reveal any severe tenderness or fluctuance. An attempt was made with that using an 18- gauge needle and a 10 mL syringe with multiple passes into the appropriate areas to attempt to drain a possible peritonsillar abscess and none was found. The remainder of the head and neck exam was unremarkable. There was no evidence of any significant lymphadenopathy. Cranial nerves 2 through 12 are within normal limits. CHEST/CARDIOVASCULAR: Lung dahl were clear to percussion and auscultation. The patient was in regular sinus rhythm. S1, S2 are present without any murmurs, S3s or S4s. The remainder of physical exam is unremarkable. IMPRESSION: Based upon the findings on the CT scan, the patient has a small right peritonsillar abscess which is unusual in that it tends to extend from the right posterior pillar down to the right piriform sinus and it is rather long and narrow. There is subsequently surrounding tissue edema. This is an unusual location. It does not appear to affect the parapharyngeal space or the pharyngomaxillary space or retropharyngeal space. There was minimal lymphadenopathy noted on the CT scan. Because of this and because no actual pus was aspirated, it was elected to admit the patient and place her on extremely high doses of IV antibiotics, namely Cleocin 900 mg q.8 hours, and a tapered dose of Decadron, she will be kept n.p.o. in the event that surgical intervention may be needed, and also for pain because of her multiple allergies, we are going to try her on Toradol IV 30 mg q.6 hours. In addition, she has medication ordered for nausea. I will re-evaluate the patient at noon tomorrow, 12/21/2017, and depending on her condition, make a decision whether or not to schedule for possible surgery, most likely would be external drainage on possibly Monday. If the patient is improving then we will simply continue with the high dose of intravenous antibiotics and steroids, and follow up with a repeat CT scan to see if the abscess has either remained static or increased in size. MMBHARATL / IJN: [id number] /
[2017-12-21] MEDS: LACTATED RINGERS 1,000 ML IV SCH ×4 (05:32→17:35)
[2017-12-22] MEDS: KETOROLAC 30 MG/ML 1 ML VIAL IVP SCH ×3 (00:44→12:47)
[2017-12-22] MEDS: DEXAMETHASONE SOD PHOSPHATE 10 MG/ML 1 ML VIAL IV SCH ×3 (00:46→15:48)
[2017-12-22] MEDS: ACETAMINOPHEN IV (For NPO) 1,000 MG in EMPTY BAG 1 BAG IVPB SCH ×3 (00:46→12:49)
[2017-12-22] MEDS: LACTATED RINGERS 1,000 ML IV SCH ×4 (00:47→23:24)
[2017-12-22] MEDS: TEMAZEPAM 15 MG CAP PO PRN ×2 (00:55→20:25)
[2017-12-22] MEDS: CLINDAMYCIN 900 MG in DEXTROSE 5% IN WATER 50 ML IVPB SCH ×6 (05:09→20:25)
[2017-12-22 10:09] LABS: Anion Gap 8 mmol/L; Blood Urea Nitrogen 10 mg/dL (7-17); Calcium 9.4 mg/dL (8.4-10.2); Carbon Dioxide 24 mmol/L (22-30); Chloride 106 mmol/L (98-107); Glucose 175 mg/dL (74-99); Potassium 4.4 mmol/L (3.5-5.1); Sodium 138 mmol/L (137-145)
[2017-12-22 10:39] LABS: Anisocytosis Slight; Basophils # (A) 0.1 k/uL (0-0.2); Basophils % (A) 0 %; Eosinophils % (A) 0 %; HCT 34.1 % (34.0-46.0); HGB 9.5 gm/dL (11.4-16.0); Hypochromasia Marked; Lymphocytes # (A) 1.8 k/uL (1.0-4.8); Lymphocytes % (A) 7 %; MCH 19.1 pg (25.0-35.0); MCHC 27.7 g/dL (31.0-37.0); MCV 68.8 fL (80.0-100.0); Mean Platelet Volume 6.1; Microcytosis Marked; Monocytes # (A) 0.7 k/uL (0-1.0); Monocytes % (A) 3 %; Neutrophils # (A) 23.4 k/uL (1.3-7.7); Neutrophils % (A) 90 %; Platelet Count 662 k/uL (150-450); RBC 4.96 m/uL (3.80-5.40); RDW 16.2 % (11.5-15.5)
[2017-12-22 11:01] LABS: WBC 26.1 k/uL (3.8-10.6)
--- NOTE | 2017-12-22 11:20 | CT ---
EXAMINATION TYPE: CT soft tissue neck w con DATE OF EXAM: 12/22/2017 HISTORY: Peritonsillar Abscess COMPARISON: CT neck from [address] DLP: 368.9 mGycm. Automated Exposure Control for Dose Reduction was Utilized. TECHNIQUE: CT scan of the neck is performed with IV Contrast, patient injected with 100 mL of Isovue 300, axial images are obtained, coronal and sagittal reformatted images are reviewed. FINDINGS: Airway: There is persistent small abscess right prevertebral hypopharynx at level of tongue base begi nning superiorly axial image 57 extending inferiorly through axial image 45 where there is more focus of air adjacent to the superior lateral right thyroid cartilage likely an remnant piriform sinus which is effaced. size of abscess is roughly 2.1 x 1.2 cm on axial image 51 not signi ficant change from prior. Amount of central fluid is perhaps slightly improved. There is persistent l ocal mass effect on the airway and slight leftward deviation. Craniocaudal length of abscess is rough ly 4 cm. Parotid/submandibular glands: No gross abnormality seen. Carotid/Vascular Structures: No significant plaque or stenosis is evident. Dominant right vertebral a rtery is redemonstrated. Osseous Structures: Minimal multilevel anterior spurring is redemonstrated. Other: There are prominent but subcentimeter lymph nodes throughout the neck bilaterally, right great er than left. A few are enlarged. There is 1.1 x 1.1 cm right submandibular lymph node axial image 50 slightly diminished in size from 1.3 x 1.2 cm on prior exam. IMPRESSION: Right-sided hypopharyngeal abscess redemonstrated. No interval progression. Stable or sli ght interval improvement.
[2017-12-22] MEDS: DEXAMETHASONE SOD PHOSPHATE 4 MG/ML 1 ML VIAL IV SCH ×3 (12:45→23:23)
[2017-12-22] MEDS ORDERED: METOCLOPRAMIDE 5 MG/ML 2 ML VIAL IVP STA (13:30)
[2017-12-22] MEDS ORDERED: IV FLUID CONTINUATION 1,000 ML IV ONE (15:47)
[2017-12-22] MEDS: ONDANSETRON 4 MG/2 ML VIAL IVP PRN ×2 (15:48→23:06)
--- NOTE | 2017-12-22 16:33 | P.PN ---
Subjective Progress Note Date: 12/22/17 Principal diagnosis: Subjective-vital signs stable patient complaining of more difficulty swallowing objective-mild increase in swelling of the face and neck repeat the computed tomography scan shows actual decrease in the size of abscess but there is still significant cellulitis of the neck assessment-) tonsillar abscess plan- schedule patient for incision and drainage right peritonsillar abscess under general anesthesia. Objective - Vital Signs Vital signs: Vital Signs Temp 98.8 F 12/22/17 15:48 Pulse 104 H 12/22/17 15:48 Resp 20 12/22/17 15:48 BP 170/87 12/22/17 15:48 Pulse Ox 93 L 12/22/17 15:48 Intake & Output 12/21/17 12/22/17 12/22/17 18:59 06:59 18:59 Intake Total 240 150 Balance 240 150 Intake: Intake, IV Titration 150 Amount ACETAMINOPHEN IV (For NPO 100 ) 1,000 mg In Empty Bag 1 bag @ 400 mls/hr IVPB Q6H [facility] Rx#:[id number] Clindamycin 900 mg In 50 Dextrose 5% in Water 50 ml @ 100 mls/hr IVPB Q8H [facility] Rx#:[id number] Oral 240 0 Other: Voiding Method Toilet Toilet Toilet # Voids 3 1 3 - Labs CBC & Chem 7: 12/22/17 09:27 12/22/17 09:27 Labs: Abnormal Lab Results - Last 24 Hours (Table) 12/22/17 12/22/17 Range/Units 09:27 09:27 WBC 26.1 H* (3.8-10.6) k/uL Hgb 9.5 L (11.4-16.0) gm/dL MCV 68.8 L (80.0-100.0) fL MCH 19.1 L (25.0-35.0) pg MCHC 27.7 L (31.0-37.0) g/dL RDW 16.2 H (11.5-15.5) % Plt Count 662 H (150-450) k/uL Neutrophils # 23.4 H (1.3-7.7) k/uL Glucose 175 H (74-99) mg/dL Microbiology - Last 24 Hours (Table) 12/20/17 19:15 Blood Culture - Preliminary Blood No Growth after 24 hours
[2017-12-22] MEDS ORDERED: MIDAZOLAM 2 MG/2 ML VIAL ONE (16:39)
[2017-12-22] MEDS ORDERED: SUCCINYLCHOLINE CHLORIDE 100 MG/5 ML SYR IV ONE (16:39)
[2017-12-22] MEDS ORDERED: LIDOCAINE 1% INJ 10MG/ML (20 ML MDV) ONE (16:39)
[2017-12-22] MEDS ORDERED: PROPOFOL 10 MG/ML 20 ML VIAL IV ONE (16:39)
[2017-12-22] MEDS ORDERED: LIDOCAINE 1% INJ 10MG/ML (20 ML MDV) SQ ONE ×2 (17:07)
[2017-12-22] MEDS ORDERED: LACTATED RINGERS 1,000 ML IV ONE (17:46)
[2017-12-22] MEDS ORDERED: diphenhydrAMINE 50 MG/ML 1 ML VIAL IVP ONE (18:00)
[2017-12-22] MEDS ORDERED: ACETAMINOPHEN IV (For NPO) 1,000 MG/100 ML VIAL IVPB ONE (18:19)
[2017-12-22 18:37] VITALS: RESP 16
[2017-12-22] MEDS: IBUPROFEN IV 800 MG in SODIUM CHLORIDE 0.9% 250 ML IV SCH ×2 (18:54→23:06)
[2017-12-22] MEDS: guaiFENesin-DM 100-10MG/5ML 10 ML CUP PO PRN (20:24)
[2017-12-23] MEDS: AMPICILLIN-SULBACTAM 3 GM in SODIUM CHLORIDE 0.9% 100 ML IVPB SCH ×3 (01:35→17:04)
[2017-12-23] MEDS ORDERED: CALCIUM CARBONATE 500 MG CHEWABLE PO PRN (01:37)
[2017-12-23] MEDS: CLINDAMYCIN 900 MG in DEXTROSE 5% IN WATER 50 ML IVPB SCH ×6 (04:22→19:32)
[2017-12-23] MEDS: LACTATED RINGERS 1,000 ML IV SCH ×4 (04:22→23:42)
[2017-12-23] MEDS: IBUPROFEN IV 800 MG in SODIUM CHLORIDE 0.9% 250 ML IV SCH ×4 (05:12→23:41)
--- NOTE | 2017-12-23 06:57 | OP ---
OPERATIVE REPORT DATE OF SURGERY: 12/22/2017 PREOP DIAGNOSIS: Right peritonsillar abscess. POSTOPERATIVE DIAGNOSIS: Right peritonsillar abscess. ANESTHESIA: General. OPERATIVE PROCEDURE: Incision and drainage of right peritonsillar abscess and right retropharyngeal abscess. SURGEON: Dr. Huynh. COMPLICATIONS: None. ESTIMATED BLOOD LOSS: Less than 30 mL. PROCEDURE: Patient was placed on the operating table in the supine position and after uneventful induction endotracheal intubation, satisfactory general anesthesia was obtained. Next, the patient was prepped in usual customary fashion. Following this, a #3 Ashok Favio mouth gag was introduced into the patient's oropharynx and expanded. The mouth gag was then suspended from a Shaikh while stand. Next inspection of the area revealed that there was significant soft tissue edema around the right tonsil and also there was a bulge on the right posterior pharyngeal wall. Therefore, using a sickle knife, a curvilinear incision was made at the superior pole of the right tonsil through mucous membrane. Using a pair of small mosquito hemostats, this area was enlarged and also using a Cyndie dissector, the superior aspect of the tonsil was dissected away from the tonsillar fossa. There was only a scant amount of purulent material that was noted. The dissection was carried down inferiorly enough so as to allow an area of possible drainage. Next using a 10 mL syringe, several areas lateral to the right tonsil were aspirated to see if any purulent material was noted with special attention along the inferior pole. None was noted. In addition to this, there was a bulge of the right posterior pharyngeal wall and this area was subsequently incised using a sickle knife to make an incision that was approximately 2 cm in length vertically through mucous membrane and the soft tissues. Next, a small curve mosquito hemostat was placed in the incision insertion and fell into what appeared to be an abscess cavity. This incision was left open. Hemostasis was obtained by using suction cautery. The area on the posterior pharyngeal wall, most likely represented an early retropharyngeal abscess. The peritonsillar area was generously infiltrated with approximately 10 mL of 1% Marcaine solution along the posterior pharyngeal wall. At this point, procedure was terminated. Estimated blood loss was less than 30 mL. There were no intraoperative complications. The patient tolerated procedure well and was returned to the recovery room in satisfactory condition and will be returned to her room in the hospital. MMODL / IJN: [id number] /
[2017-12-23] MEDS: guaiFENesin-DM 100-10MG/5ML 10 ML CUP PO PRN ×2 (09:16→21:13)
[2017-12-23] MEDS: FAMOTIDINE 20 MG/2 ML VIAL IV SCH (17:03)
[2017-12-23] MEDS ORDERED: AMPICILLIN-SULBACTAM 3 GM in SODIUM CHLORIDE 0.9% 100 ML IVPB SCH (18:30)
[2017-12-23] MEDS: TEMAZEPAM 15 MG CAP PO PRN (21:13)
[2017-12-24] MEDS: AMPICILLIN-SULBACTAM 3 GM in SODIUM CHLORIDE 0.9% 100 ML IVPB SCH ×2 (01:26→08:01)
[2017-12-24] MEDS: CLINDAMYCIN 900 MG in DEXTROSE 5% IN WATER 50 ML IVPB SCH ×2 (03:27)
[2017-12-24] MEDS: IBUPROFEN IV 800 MG in SODIUM CHLORIDE 0.9% 250 ML IV SCH (05:16)
[2017-12-24 06:00] VITALS: BP 127/79; PULSE 84; TEMP 97.5
[2017-12-24] MEDS: LACTATED RINGERS 1,000 ML IV SCH (08:00)
[2017-12-24] MEDS: FAMOTIDINE 20 MG/2 ML VIAL IV SCH (08:01)
--- NOTE | 2017-12-24 16:20 | PN ---
PROGRESS NOTE DATE OF SERVICE: 12/21/2017 SUBJECTIVE: Vital signs are stable. The patient states that her neck feels better and she is having less difficulty swallowing and her sore throat has lessened. In addition to this, she mentioned that she has been bringing up some brackish tasting fluid since the attempted I and D of a right peritonsillar abscess in the emergency room the night before. OBJECTIVE: Clinical examination: Oropharynx is unremarkable. There is still soft tissue edema of the right peritonsillar area of the right posterior pharyngeal wall. Palpation of the neck does not reveal any evidence of any fluctuance or abnormal tenderness. The remainder of the physical exam is unremarkable. ASSESSMENT: Right peritonsillar abscess. PLAN: We going to continue the patient on the present regimen of IV antibiotic, clindamycin, IV fluids, etc. I will re-evaluate the patient again on Monday and if necessary, if her symptoms have have progressed, then we will consider taking her to surgery for definitive treatment. MARCUS / MANISHAN: [id number] /
--- NOTE | 2017-12-24 16:20 | PN ---
PROGRESS NOTE DATE OF SERVICE: 12/23/2017 SUBJECTIVE: Vital signs are stable. The patient states that she has been having increasing difficulty swallowing and that her pain level has increased since yesterday. OBJECTIVE: Clinical examination does not reveal any significant increased swelling of the neck but examination of oropharynx reveals that there may be some slight increased swelling in the right peritonsillar area. ASSESSMENT: Right peritonsillar abscess with possible early right retropharyngeal early abscess. PLAN: We are planning on taking the patient to surgery this afternoon and under general anesthesia, we will definitively incise and drain the right peritonsillar abscess and possibly a right retropharyngeal abscess under general anesthesia. The reason for waiting until this afternoon is because the patient unfortunately ate breakfast and therefore we cannot perform surgery as per anesthesia's request until after 4:00 pm today. That is the plan as of now. MMBHARATL / IJVictoriano: [id number] /
== END 2017-12-24 09:49 | disposition home or self-care (01) | DRG 134 ==
LOC: EC 17:56 → 5MS5E 22:50 → OBSVTOIN 12-22 11:30
PROVIDERS: ADMIT Otolaryngology; ATTEND Otolaryngology
PROC: 0C9PXZZ Drainage of Tonsils, External Approach (ICD-10-PCS; principal; 2017-12-22 11:40)
DX: J36 Peritonsillar abscess (principal); D64.9 Anemia, unspecified; J45.909 Unspecified asthma, uncomplicated; K21.9 Gastro-esophageal reflux disease without esophagitis; Z88.1 Allergy status to other antibiotic agents; Z88.5 Allergy status to narcotic agent; Z88.8 Allergy status to other drugs, medicaments and biological substances; Z91.018 Allergy to other foods; Z86.718 Personal history of other venous thrombosis and embolism; Z87.01 Personal history of pneumonia (recurrent); Z79.899 Other long term (current) drug therapy
CPT/HCPCS: 36415; 70491; 71046; 80048; 80053; 81001; 81025; 83605; 85025; 86308; 87040; 87081; 87430; 96361; 96365; 96372; 96375; 96376; 99285

== ENCOUNTER → 2018-09-04 | Outpatient (CLI) | payer BC ==
--- NOTE | 2018-09-04 18:40 | CT ---
EXAMINATION TYPE: CT chest abdomen wo con DATE OF EXAM: 09/04/2018 COMPARISON: None HISTORY: Nausea, vomiting, cough. RUQ pain CT DLP: 229 mGycm Automated exposure control for dose reduction was used. FINDINGS: CHEST: Airways: Negative. Lungs: Clear and well-expanded bilaterally. Pleural spaces: Negative. Mediastinum/mahogany: No mass or adenopathy. No cardiomegaly or pericardial effusion. However, coronary c alcifications are noted. No incidentals. Skeletal structures: No focal findings. ABDOMEN: The visualized bowel is normal appearance; no bowel obstruction. No abnormal gas or fluid collections . No mass or adenopathy. No obstructive uropathy. Biliary and pancreatic ductal anatomy unremarkable There is a 3 cm right renal upper pole posterior parenchymal hypodense lesion. This may represent a s imple renal cyst, but further characterization with targeted right renal ultrasound with Doppler is r ecommended. IMPRESSION: 1. NO ACUTE PROCESS. 2. INCIDENTAL 3 CM RIGHT RENAL CYST LIKE MASS, PRESUMABLY REPRESENTING RENAL CYST BUT FOLLOW-UP NONUR GENT RIGHT RENAL ULTRASOUND RECOMMENDED. 3. INCIDENTAL CORONARY CALCIFICATIONS NOTED.
== END ==
LOC: RADCTMAIN 16:38
PROVIDERS: ATTEND Nurse Practitioner Adult Health
DX: R11.2 Nausea with vomiting, unspecified (principal); R05 Cough; R10.12 Left upper quadrant pain; N28.89 Other specified disorders of kidney and ureter; I25.10 Atherosclerotic heart disease of native coronary artery without angina pectoris
CPT/HCPCS: 71250; 74150

== ENCOUNTER → 2018-09-12 | Outpatient (CLI) | payer BC ==
--- NOTE | 2018-09-12 15:49 | CT ---
EXAMINATION TYPE: CT soft tissue neck w con DATE OF EXAM: 09/12/2018 HISTORY: swelling to right side of neck COMPARISON: CT neck December 22, 2017 CT DLP: 482 mGycm. Automated Exposure Control for Dose Reduction was Utilized. TECHNIQUE: CT scan of the neck is performed with IV Contrast, patient injected with 100 mL of Isovue 300, axial images are obtained, coronal and sagittal reformatted images are reviewed. FINDINGS: Airway: Few scattered small hypodense nodules throughout the bilateral thyroid lobes are identified. Parotid/submandibular glands: No gross abnormality seen. Carotid/Vascular Structures: Dominant right vertebral artery is incidentally is redemonstrated. Osseous Structures: Mild disc space narrowing and spurring lower cervical levels is again seen. Other: There are prominent but scattered subcentimeter lymph nodes throughout the neck bilaterally. N o suspicious greater than 1 cm neck lymph nodes are seen. IMPRESSION: No suspicious mass, fluid collection, or adenopathy with particular attention to the rig ht neck at area of clinical and patient concern.
== END | disposition home or self-care (01) ==
LOC: RADCTMAIN 14:22
PROVIDERS: ATTEND Internal Medicine
DX: R22.1 Localized swelling, mass and lump, neck (principal); Z87.09 Personal history of other diseases of the respiratory system
CPT/HCPCS: 70491; Q9967

== ENCOUNTER → 2018-10-17 | Outpatient (CLI) | payer BC ==
--- NOTE | 2018-10-17 09:16 | US ---
EXAMINATION TYPE: US abdomen complete DATE OF EXAM: 10/17/2018 COMPARISON: CT CLINICAL HISTORY: N28.89 Other specified disorders of kidney and ure. EXAM MEASUREMENTS: Liver Length: 14.3 cm Gallbladder Wall: 0.2 cm CBD: 0.3 cm Spleen: 10.5 cm Right Kidney: 11.4 x 4.8 x 4.5 cm Left Kidney: 12.1 x 5.4 x 5.0 cm Patient of large body habitus. Pancreas: mostly obscured by bowel gas, portions visualized wnl Liver: Increased attenuation 2 hypoechoic areas noted, probable focal fatty sparing largest measurin g 2.5 x 2.0 x 4.9cm Gallbladder: wnl Evidence for sonographic Jaime's sign: no CBD: wnl Spleen: wnl Right Kidney: probable cyst measuring 2.5 x 2.5 x 2.3cm Left Kidney: wnl Upper IVC: wnl Abd Aorta: bifurcation obscured by bowel gas, otherwise wnl IMPRESSION: 1. There is a cyst within the right kidney measuring 2.5 cm. 2. Liver is increased in echo pattern with 2 focal areas of reduced echogenicity likely representing fatty infiltration with focal areas of fatty sparing.
== END | disposition home or self-care (01) ==
LOC: RADUSWWP 08:16
PROVIDERS: ATTEND Internal Medicine Infectious Disease
DX: N28.1 Cyst of kidney, acquired (principal); Z88.5 Allergy status to narcotic agent; Z91.09 Other allergy status, other than to drugs and biological substances; Z88.1 Allergy status to other antibiotic agents
CPT/HCPCS: 76700

== ENCOUNTER 2018-12-07 10:30 | Day surgery (SDC) | payer BC ==
[2018-12-03 15:23] VITALS: BMI 34.0
[~2018-12-07 10:30] MED LIST: LACTATED RINGERS 1,000 ML IV SCH
[2018-12-07 11:16] VITALS: PULSE 87; TEMP 98.4
[2018-12-07] MEDS ORDERED: LIDOCAINE 1% 20 ML VIAL (10MG/ML) FOR IV START INTRADERMA ONE (11:23)
[2018-12-07] MEDS ORDERED: PROPOFOL 10 MG/ML 20 ML VIAL IV ONE (12:20)
--- NOTE | 2018-12-07 12:43 | P.PCN ---
Date of Procedure: 12/07/18 Procedure(s) Performed: Brief history: Patient is a pleasant 47-year-old white female scheduled for an elective upper endoscopy as well as colonoscopy as a part of evaluation of I deficiency anemia. She does complain of GERD symptoms and has been on Zantac 150 milligrams twice daily and feeling better. Also has chronic intermittent diarrhea. Procedure performed: Esophagogastroduodenoscopy with biopsy Colonoscopy with snare polypectomy Preoperative diagnosis: Iron deficiency anemia GERD and chronic diarrhea Anesthesia: MAC Procedure: After informed consent was obtained from the patient was brought into the endoscopy unit and IV sedation was administered by anesthesia under continuous monitoring. Initially upper endoscopy was done. The Olympus GF 160 video endoscope was inserted inserted into the mouth and esophagus intubated without any difficulty and was gradually advanced into the stomach and duodenum and carefully examined. The bulb and second part of the duodenum appeared normal. The scope was then withdrawn into the stomach adequately insufflated with air and upon careful examination the antrum had mild gastritis and biopsies were done from this area. The body, cardia and fundus appeared normal. Biopsies were done from the duodenum to rule out celiac disease. The scope was then withdrawn into the esophagus. The GE junction was located at 40 cm to the incisors. It appeared regular with no erythema erosions or ulcerations. Rest of the esophagus appeared normal. Patient tolerated the procedure well. At this time the patient continued to remain sedation. Initial digital rectal examination was normal. Olympus CF 160 video colonoscope was then inserted into the rectum and gradually advanced to the cecum without any difficulty. Careful examination was performed as the scope was gradually being withdrawn. The prep was excellent. The cecum, ascending colon, transverse colon, descending colon appeared normal. In the sigmoid colon there was a 5 mm sessile polyp that was removed by snare polypectomy. In the proximal rectum there were 2 polyps me asuring 5 mm in size both of which were removed by snare polypectomy. Rest of the, sigmoid colon and rectum appeared normal. Retroflexion was performed in the rectum and no lesions were noted. Patient tolerated the procedure well. Impression: 1. Upper endoscopy revealed mild antral gastritis 2. Colonoscopy revealed 5 mm; sigmoid colon polyp and 5 mm 2 sessile rectal polyps all of which were removed by snare polypectomy. Recommendations: Findings of this examination were discussed with the patient as well a her family. She was advised to follow with the biopsy results. She was advised to follow with the biopsy results. If the biopsy shows an adenoma she can have a repeat colonoscopy in 5 years
[2018-12-07 13:12] VITALS: BP 126/85; RESP 18
== END 2018-12-07 13:44 | disposition home or self-care (01) ==
LOC: ORWHC2ENDO 10:30
PROVIDERS: ATTEND Internal Medicine Gastroenterology
DX: D50.9 Iron deficiency anemia, unspecified (principal); K21.9 Gastro-esophageal reflux disease without esophagitis; D12.5 Benign neoplasm of sigmoid colon; K62.1 Rectal polyp; K29.50 Unspecified chronic gastritis without bleeding; B96.81 Helicobacter pylori [H. pylori] as the cause of diseases classified elsewhere; I10 Essential (primary) hypertension; J45.909 Unspecified asthma, uncomplicated; Z79.1 Long term (current) use of non-steroidal anti-inflammatories (NSAID); Z79.82 Long term (current) use of aspirin; Z79.899 Other long term (current) drug therapy; Z88.1 Allergy status to other antibiotic agents; Z88.5 Allergy status to narcotic agent; Z98.51 Tubal ligation status; Z86.718 Personal history of other venous thrombosis and embolism
CPT/HCPCS: 45385; 43239; 88305; 81025; 88342; J2704

== ENCOUNTER → 2019-11-19 | Outpatient (CLI) | payer BC ==
[2019-11-19 14:52] LABS: T4, Free (Free Thyroxine) 0.89 ng/dL (0.78-2.19)
--- NOTE | 2019-11-19 14:58 | US ---
EXAMINATION TYPE: US transvaginal DATE OF EXAM: 11/19/2019 COMPARISON: None CLINICAL HISTORY: 48-year-old female N93.9 ABN UTERINE BLEEDING. Heavy periods TECHNIQUE: Transabdominal sonographic images of the pelvis were acquired. Transvaginal sonographic images were medically necessary to better assess the following anatomy: Date of LMP: 11/10/19 FINDINGS: EXAM MEASUREMENTS: Uterus: 10.8 x 6.8 x 6.0 cm cm Endometrial Stripe: 1.2 cm Right Ovary: 3.0 x 2.1 x 1.5 cm Left Ovary: 3.0 x 2.2 x 2.1 cm 1. Uterus: Anteverted with Heterogeneous texture. Multiple cervical cysts, largest = 1.1 cm 2. Endometrium: wnl 3. Right Ovary: wnl 4. Left Ovary: wnl 5. Bilateral Adnexa: wnl 6. Posterior cul-de-sac: wnl IMPRESSION: 1. Heterogeneous myometrium may reflect diffuse small fibroid change. 2. Endometrial stripe at the upper limits of normal at 1.2 cm should correspond to the secretory phas e of the menstrual cycle. 3. No pelvic free fluid.
[2019-11-19 15:11] LABS: Basophils # (A) 0.1 k/uL (0-0.2); Basophils % (A) 1 %; Eosinophils # (A) 0.2 k/uL (0-0.7); Eosinophils % (A) 2 %; HCT 37.4 % (34.0-46.0); HGB 11.6 gm/dL (11.4-16.0); Hypochromasia Moderate; Lymphocytes # (A) 2.9 k/uL (1.0-4.8); Lymphocytes % (A) 25 %; MCH 25.1 pg (25.0-35.0); Mean Platelet Volume 7.4; Monocytes # (A) 0.7 k/uL (0-1.0); Monocytes % (A) 6 %; Neutrophils # (A) 7.5 k/uL (1.3-7.7); Neutrophils % (A) 64 %; Platelet Count 533 k/uL (150-450); RBC 4.61 m/uL (3.80-5.40); RDW 13.9 % (11.5-15.5); WBC 11.6 k/uL (3.8-10.6)
== END | disposition home or self-care (01) ==
LOC: RADUSWWP 13:31
PROVIDERS: ATTEND Obstetrics & Gynecology
DX: N85.8 Other specified noninflammatory disorders of uterus (principal); N93.9 Abnormal uterine and vaginal bleeding, unspecified; R53.83 Other fatigue
CPT/HCPCS: 36415; 76830; 84439; 84443; 85025

== ENCOUNTER 2020-03-09 08:17 | Emergency (ER) | payer BC ==
[2020-03-09 08:26] VITALS: RESP 18
[2020-03-09] MEDS ORDERED: IBUPROFEN 600 MG TAB PO STA (08:39)
[2020-03-09] MEDS ORDERED: ACETAMINOPHEN TAB 500 MG TAB PO STA (08:39)
--- NOTE | 2020-03-09 08:42 | ED ---
General Adult HPI - General Chief complaint: Upper Respiratory Infection Stated complaint: congestion/body aches Time Seen by Provider: 03/09/20 08:29 Source: patient, RN notes reviewed Mode of arrival: ambulatory Limitations: no limitations - History of Present Illness Initial comments: Patient is a pleasant 49-year-old female presenting to the emergency Department with multiple symptoms. Onset of symptoms was yesterday. Patient does have chills and fatigue and myalgias. Patient has minimal cough. No dyspnea. Patient does have nasal congestion and loss of smell. Patient has had a couple episodes of diarrhea. No known exposure to Eduardo virus. Patient does have secondary exposure to influenza. - Related Data Home Medications Medication Instructions Recorded Confirmed Multivitamins, Thera [Multivitamin] 1 tab PO DAILY 02/24/16 03/09/20 Biotin 5,000 mcg PO DAILY 12/03/18 03/09/20 Amberen Oral Supplement 2 tab PO DAILY 03/09/20 03/09/20 Ascorbic Acid [Vitamin C] 1,000 mg PO DAILY 03/09/20 03/09/20 Cholecalciferol [Vitamin D3 (25 1,000 unit PO DAILY 03/09/20 03/09/20 Mcg = 1000 Iu)] Omeprazole Magnesium [PriLOSEC OTC] 20 mg PO DAILY 03/09/20 03/09/20 Previous Rx's Medication Instructions Recorded Oseltamivir [Tamiflu] 75 mg PO Q12HR #10 cap 03/09/20 Allergies Allergy/AdvReac Type Severity Reaction Status Date / Time cefazolin sodium Allergy Rash/Hives Verified 03/09/20 10:01 [From Kefzol] clarithromycin [From Biaxin] Allergy Rash/Hives Verified 03/09/20 10:01 pear Allergy Anaphylaxis Verified 03/09/20 10:01 Review of Systems ROS Statement: Those systems with pertinent positive or pertinent negative responses have been documented in the HPI. ROS Other: All systems not noted in ROS Statement are negative. Constitutional: Reports: chills Eyes: Denies: eye pain ENT: Denies: ear pain Respiratory: Reports: cough. Denies: dyspnea Cardiovascular: Denies: chest pain Endocrine: Reports: fatigue Gastrointestinal: Reports: diarrhea. Denies: abdominal pain, vomiting Genitourinary: Denies: dysuria Musculoskeletal: Denies: back pain Skin: Denies: rash Neurological: Denies: weakness Past Medical History Past Medical History: Asthma, Deep Vein Thrombosis (DVT), GERD/Reflux, Hypertension, Pneumonia Additional Past Medical History / Comment(s): migraines, hx dvt rt arm, anemia- recieving iron transfusions, pneumonia History of Any Multi-Drug Resistant Organisms: None Reported Past Surgical History: Appendectomy, Orthopedic Surgery, Tubal Ligation Additional Past Surgical History / Comment(s): left knee arthroscopy, left hand surgery-trigger finger, christine-tonsillar abscess surgery. Past Anesthesia/Blood Transfusion Reactions: Previous Problems w/ Anesthesia, Family History of Problems w/ Anesthesia, Motion Sickness, Postoperative Nausea & Vomiting (PONV) Additional Past Anesthesia/Blood Transfusion Reaction / Comment(s): "relaxing medication makes me more anxious". patients son had difficulty waking up Past Psychological History: No Psychological Hx Reported Smoking Status: Never smoker Past Alcohol Use History: Rare Past Drug Use History: None Reported - Past Family History Father Family Medical History: Cancer Additional Family Medical History / Comment(s): skin cancer General Exam Limitations: no limitations General appearance: alert, in no apparent distress Head exam: Present: normocephalic Eye exam: Present: normal appearance Neck exam: Present: normal inspection Respiratory exam: Present: normal lung sounds bilaterally. Absent: respiratory distress, wheezes Cardiovascular Exam: Present: tachycardia GI/Abdominal exam: Present: soft. Absent: tenderness Extremities exam: Present: normal inspection Neurological exam: Present: alert Psychiatric exam: Present: normal affect, normal mood Skin exam: Present: normal color Course Vital Signs 03/09/20 03/09/20 08:22 10:26 Temperature 100.1 F H 98.4 F Pulse Rate 124 H 100 Respiratory 18 18 Rate Blood Pressure 161/106 134/93 O2 Sat by Pulse 98 98 Oximetry - Reevaluation(s) Reevaluation #1: 03/09/20 08:41 Patient was recommended chest x-ray however refuses stating she does not feel is necessary. Patient does have history of asthma and denies dyspnea. Medical Decision Making - Medical Decision Making Patient reevaluated and updated. Patient is resting comfortably in bed. Patient is warned about quarantined. Patient states she arty does take vitamin D and vitamin C daily. - Lab Data Lab Results 03/09/20 03/09/20 Range/Units 09:01 10:30 Coronavirus (PCR) Detected A (Not Detectd) Influenza Type A RNA Not Detected (Not Detectd) Influenza Type B (PCR) Detected H (Not Detectd) Disposition Clinical Impression: COVID-19 virus infection, Influenza Disposition: HOME SELF-CARE Condition: Stable Instructions (If sedation given, give patient instructions): Influenza (ED) Additional Instructions: Continue daily vitamin C and vitamin D. Try to get some outdoor exposure and sunlight. Self quarantined for 10 days after the onset of symptoms and fever free for over 24 hours. Return for difficulty in breathing, weakness, worsening or changing symptoms or other concerns. Pres[facility]fluenzal [facility] Prescriptions: Oseltamivir [Tamiflu] 75 mg PO Q12HR #10 cap Is patient prescribed a controlled substance at d/c from ED?: No Referrals: Chela Segura NPC [Primary Care Provider] - 1-2 days Time of Disposition: 11:40
[2020-03-09 10:27] VITALS: BP 134/93; PULSE 100; TEMP 98.4
== END 2020-03-09 11:58 | disposition home or self-care (01) ==
LOC: EC 08:17
DX: U07.1 COVID-19 (principal); J11.1 Influenza due to unidentified influenza virus with other respiratory manifestations; K21.9 Gastro-esophageal reflux disease without esophagitis; Z79.899 Other long term (current) drug therapy; Z88.1 Allergy status to other antibiotic agents; Z91.018 Allergy to other foods; Z86.718 Personal history of other venous thrombosis and embolism
CPT/HCPCS: 87502; 87635; 99283

== ENCOUNTER 2020-03-14 16:17 | Inpatient (IN) | payer BC ==
[2020-03-14] MEDS ORDERED: ALBUTEROL HFA INHALER INHALATION STA (16:19)
[2020-03-14] MEDS ORDERED: dexAMETHasone 2 MG TAB PO STA (16:20)
[2020-03-14 16:37] LABS: Anisocytosis Moderate; Basophils # (A) 0.2 k/uL (0-0.2); Basophils % (A) 2 %; Eosinophils # (A) 0.1 k/uL (0-0.7); Eosinophils % (A) 1 %; HCT 44.3 % (34.0-46.0); Lymphocytes # (A) 1.1 k/uL (1.0-4.8); Lymphocytes % (A) 13 %; MCH 24.1 pg (25.0-35.0); MCHC 32.6 g/dL (31.0-37.0); MCV 73.8 fL (80.0-100.0); Mean Platelet Volume 8.3; Microcytosis Marked; Monocytes # (A) 0.6 k/uL (0-1.0); Monocytes % (A) 7 %; Neutrophils # (A) 6.9 k/uL (1.3-7.7); Neutrophils % (A) 77 %; Platelet Count 283 k/uL (150-450); RDW 20.7 % (11.5-15.5)
--- NOTE | 2020-03-14 16:45 | ED ---
General Adult HPI - General Chief complaint: Recheck/Abnormal Lab/Rx Stated complaint: SOB Source: patient, RN notes reviewed, old records reviewed Mode of arrival: ambulatory Limitations: no limitations - History of Present Illness Initial comments: 49-year-old female patient history of asthma recently diagnosed with coronavirus as well as influenza B to ED. She reports that she is feeling very achy and generally unwell. She reports that she feels as if her asthma is acting up and she is having some pain in her lateral ribs when she breathes. She is denying any anterior chest pain. She is reporting some shortness of breath. She denies any other acute complaints. Systemic: Pt denies fatigue, fever/chills, rash. Pt denies weakness, night sweats, weight loss. Neuro: Pt denies headache, visual disturbances, syncope or pre-syncope. HEENT: Pt denies ocular discharge or irritation, otalgia, rhinorrhea, pharyngitis or notable lymphadenopathy. Cardiopulmonary: Pt denies heart palpitations, dyspnea on exertion. Abdominal/GI: Pt denies abdominal pain, n/v/d. : Pt denies dysuria, burning w/ urination, frequency/urgency. Denies new onset urinary or bowel incontinence. MSK: Pt denies myalgia, loss of strength or function in extremities. Neuro: Pt denies new onset weakness, paresthesias. - Related Data Home Medications Medication Instructions Recorded Confirmed Multivitamins, Thera [Multivitamin] 1 tab PO DAILY 02/24/16 03/09/20 Biotin 5,000 mcg PO DAILY 12/03/18 03/09/20 Amberen Oral Supplement 2 tab PO DAILY 03/09/20 03/09/20 Ascorbic Acid [Vitamin C] 1,000 mg PO DAILY 03/09/20 03/09/20 Cholecalciferol [Vitamin D3 (25 1,000 unit PO DAILY 03/09/20 03/09/20 Mcg = 1000 Iu)] Omeprazole Magnesium [PriLOSEC OTC] 20 mg PO DAILY 03/09/20 03/09/20 Previous Rx's Medication Instructions Recorded Oseltamivir [Tamiflu] 75 mg PO Q12HR #10 cap 03/09/20 Allergies Allergy/AdvReac Type Severity Reaction Status Date / Time cefazolin sodium Allergy Rash/Hives Verified 03/09/20 10:01 [From Kefzol] clarithromycin [From Biaxin] Allergy Rash/Hives Verified 03/09/20 10:01 pear Allergy Anaphylaxis Verified 03/09/20 10:01 Review of Systems ROS Statement: Those systems with pertinent positive or pertinent negative responses have been documented in the HPI. ROS Other: All systems not noted in ROS Statement are negative. Past Medical History Past Medical History: Asthma, Deep Vein Thrombosis (DVT), GERD/Reflux, Hypertension, Pneumonia Additional Past Medical History / Comment(s): migraines, hx dvt rt arm, anemia- recieving iron transfusions, pneumonia History of Any Multi-Drug Resistant Organisms: None Reported Past Surgical History: Appendectomy, Orthopedic Surgery, Tubal Ligation Additional Past Surgical History / Comment(s): left knee arthroscopy, left hand surgery-trigger finger, christine-tonsillar abscess surgery. Past Anesthesia/Blood Transfusion Reactions: Previous Problems w/ Anesthesia, Family History of Problems w/ Anesthesia, Motion Sickness, Postoperative Nausea & Vomiting (PONV) Additional Past Anesthesia/Blood Transfusion Reaction / Comment(s): "relaxing medication makes me more anxious". patients son had difficulty waking up Past Psychological History: No Psychological Hx Reported Smoking Status: Never smoker Past Alcohol Use History: Rare Past Drug Use History: None Reported - Past Family History Father Family Medical History: Cancer Additional Family Medical History / Comment(s): skin cancer General Exam - General Exam Comments Initial Comments: Constitutional: NAD, AOX3, Pt has pleasant affect. HEENT: NC/AT, trachea midline, neck supple, no lymphadenopathy. Posterior phary nx non erythematous, without exudates. External ears appear normal, without discharge. Mucous membranes moist. Eyes PERRLA, EOM intact. There is no scleral icterus. No pallor noted. Cardiopulmonary: RRR, no murmurs, rubs or gallops, no JVD noted. Mild wheezing in anterior lung dahl. No peripheral edema. Abdominal exam: Abdomen soft and non-distended. Abdomen non-tender to palpation in all 4 quadrants. Bowel sounds active in LLQ. No hepatosplenomegaly. No ecchymosis Neuro: CN II-XII grossly intact. No nuchal rigidity. No raccon eyes, no ashraf sign, no hemotympanum. No cervical spinal tenderness. MSK: No posterior calf tenderness bilaterally, homans sign negative bilaterally. Posterior tibialis and radial pulse +2 bilaterally. Sensation intact in upper and lower extremities. Full active ROM in upper and lower extremities, 5/5 stregnth. Limitations: no limitations Course Vital Signs 03/14/20 03/14/20 16:26 17:26 Temperature 98.5 F Pulse Rate 127 H Respiratory 23 20 Rate Blood Pressure 144/86 O2 Sat by Pulse 97 Oximetry Medical Decision Making - Medical Decision Making 49-year-old female patient previously positive for Covid and influenza to ED. Patient reports that she is feeling very weak and achy. Reports that her breat elvira has worsened. Did complete her Tamiflu. Vital signs display tachycardia. Lungs reveal mild wheezing. Laboratory investigations reveal increased inflammatory mediators. CT chest angiography negative for acute PE does reveal intensive Covid pneumonia. Patient she is on steroids of be admitted for further evaluation. Case discussed with Dr. Merino, accepting physician Dr. Briseno. - Lab Data Result diagrams: 03/14/20 16:06 03/14/20 16:06 Lab Results 03/14/20 03/14/20 03/14/20 Range/Units 16:06 16:06 16:06 WBC 9.0 (3.8-10.6) k/uL RBC 6.00 H (3.80-5.40) m/uL Hgb 14.5 D (11.4-16.0) gm/dL Hct 44.3 (34.0-46.0) % MCV 73.8 L (80.0-100.0) fL MCH 24.1 L (25.0-35.0) pg MCHC 32.6 (31.0-37.0) g/dL RDW 20.7 H (11.5-15.5) % Plt Count 283 (150-450) k/uL MPV 8.3 Neutrophils % 77 % Lymphocytes % 13 % Monocytes % 7 % Eosinophils % 1 % Basophils % 2 % Neutrophils # 6.9 (1.3-7.7) k/uL Lymphocytes # 1.1 (1.0-4.8) k/uL Monocytes # 0.6 (0-1.0) k/uL Eosinophils # 0.1 (0-0.7) k/uL Basophils # 0.2 (0-0.2) k/uL Anisocytosis Moderate Microcytosis Marked PT 9.3 (9.0-12.0) sec INR 0.9 (<1.2) APTT 25.2 (22.0-30.0) sec D-Dimer 0.68 H (<0.60) mg/L FEU Sodium 135 L (137-145) mmol/L Potassium 4.9 (3.5-5.1) mmol/L Chloride 101 (98-107) mmol/L Carbon Dioxide 23 (22-30) mmol/L Anion Gap 11 mmol/L BUN 12 (7-17) mg/dL Creatinine 0.80 (0.52-1.04) mg/dL Est GFR (CKD-EPI)AfAm >90 (>60 ml/min/1.73 sqM) Est GFR (CKD-EPI)NonAf 87 (>60 ml/min/1.73 sqM) Glucose 96 (74-99) mg/dL Plasma Lactic Acid Alfonso (0.7-2.0) mmol/L Calcium 9.6 (8.4-10.2) mg/dL Magnesium 2.3 (1.6-2.3) mg/dL Total Bilirubin 0.6 (0.2-1.3) mg/dL AST 96 H (14-36) U/L ALT 118 H (4-34) U/L Alkaline Phosphatase 66 (38-126) U/L Lactate Dehydrogenase 955 H (313-618) U/L Troponin I (0.000-0.034) ng/mL C-Reactive Protein 47.1 H (<10.0) mg/L Total Protein 8.5 H (6.3-8.2) g/dL Albumin 4.5 (3.5-5.0) g/dL 03/14/20 03/14/20 Range/Units 16:06 16:06 WBC (3.8-10.6) k/uL RBC (3.80-5.40) m/uL Hgb (11.4-16.0) gm/dL Hct (34.0-46.0) % MCV (80.0-100.0) fL MCH (25.0-35.0) pg MCHC (31.0-37.0) g/dL RDW (11.5-15.5) % Plt Count (150-450) k/uL MPV Neutrophils % % Lymphocytes % % Monocytes % % Eosinophils % % Basophils % % Neutrophils # (1.3-7.7) k/uL Lymphocytes # (1.0-4.8) k/uL Monocytes # (0-1.0) k/uL Eosinophils # (0-0.7) k/uL Basophils # (0-0.2) k/uL Anisocytosis Microcytosis PT (9.0-12.0) sec INR (<1.2) APTT (22.0-30.0) sec D-Dimer (<0.60) mg/L FEU Sodium (137-145) mmol/L Potassium (3.5-5.1) mmol/L Chloride (98-107) mmol/L Carbon Dioxide (22-30) mmol/L Anion Gap mmol/L BUN (7-17) mg/dL Creatinine (0.52-1.04) mg/dL Est GFR (CKD-EPI)AfAm (>60 ml/min/1.73 sqM) Est GFR (CKD-EPI)NonAf (>60 ml/min/1.73 sqM) Glucose (74-99) mg/dL Plasma Lactic Acid Alfonso 1.5 (0.7-2.0) mmol/L Calcium (8.4-10.2) mg/dL Magnesium (1.6-2.3) mg/dL Total Bilirubin (0.2-1.3) mg/dL AST (14-36) U/L ALT (4-34) U/L Alkaline Phosphatase (38-126) U/L Lactate Dehydrogenase (313-618) U/L Troponin I <0.012 (0.000-0.034) ng/mL C-Reactive Protein (<10.0) mg/L Total Protein (6.3-8.2) g/dL Albumin (3.5-5.0) g/dL - EKG Data -: EKG Interpreted by Me (and Dr. Merino ) EKG Comments: ventricular rate 112. Full 124, QRS 88, QT/QTC 332/453. Sinus tachycardia, no concern for acute ischemia at this time. Disposition Clinical Impression: COVID-19 Disposition: ADMITTED IP TO THIS HOSP Condition: Serious Is patient prescribed a controlled substance at d/c from ED?: No Referrals: Chela Segura, LILIYA [Primary Care Provider] - 1-2 days
[2020-03-14 16:49] LABS: HGB 14.5 gm/dL (11.4-16.0)
[2020-03-14 16:57] LABS: ALT 118 U/L (4-34); AST 96 U/L (14-36); African American GFR (CKD) >90 (>60 ml/min/1.73 sqM); Albumin 4.5 g/dL (3.5-5.0); Alkaline Phosphatase 66 U/L (38-126); Anion Gap 11 mmol/L; Blood Urea Nitrogen 12 mg/dL (7-17); C Reactive Protein 47.1 mg/L (<10.0); Calcium 9.6 mg/dL (8.4-10.2); Carbon Dioxide 23 mmol/L (22-30); Chloride 101 mmol/L (98-107); Glucose 96 mg/dL (74-99); INR 0.9 (<1.2); LDH 955 U/L (313-618); Magnesium 2.3 mg/dL (1.6-2.3); Non-African American GFR(CKD) 87 (>60 ml/min/1.73 sqM); Partial Thromboplastin Time 25.2 sec (22.0-30.0); Prothrombin Time 9.3 sec (9.0-12.0); Sodium 135 mmol/L (137-145); Total Bilirubin 0.6 mg/dL (0.2-1.3); Total Protein 8.5 g/dL (6.3-8.2)
[2020-03-14 17:02] LABS: D-Dimer 0.68 mg/L FEU (<0.60)
[2020-03-14 17:17] LABS: Potassium 4.9 mmol/L (3.5-5.1)
--- NOTE | 2020-03-14 17:25 | XR ---
EXAMINATION TYPE: XR chest 1V portable DATE OF EXAM: 03/14/2020 COMPARISON: 12/20/2017 HISTORY: Pneumonia. Chest pain TECHNIQUE: FINDINGS: Heart and mediastinum are normal. Lungs are clear. Diaphragm is normal. Bony thorax appears normal. IMPRESSION: Normal chest. No change.
[2020-03-14] MEDS ORDERED: SODIUM CHLORIDE 0.9% 500 ML 500 ML IV ONE (17:58)
--- NOTE | 2020-03-14 18:12 | CT ---
EXAMINATION TYPE: CT chest angio for PE DATE OF EXAM: 03/14/2020 COMPARISON: None HISTORY: Elevated d-dimer. Covid+ Flu B+ SOB. CT DLP: 330.8 mGycm Automated exposure control for dose reduction was used. CONTRAST: Performed with IV Contrast, patient injected with 100 mL of Isovue 370. Images were obtained from the thoracic inlet to the diaphragm with IV contrast and 3-D post processed images. There is patchy airspace infiltrates in both lungs. There is groundglass interstitial infiltrate in t he periphery of both lungs. Heart appears fairly normal. There is no pericardial effusion. There is n o pleural effusion. There is some fatty infiltration of the liver. There is normal contrast opacification of the pulmonary arteries. There are no filling defects. There are multiple bilateral bronchial lymph nodes that measure up to 1 cm. There is no mediastinal a denopathy. Thoracic aorta is intact. There is no aneurysm or dissection. The ascending aorta measures 3.5 cm. Thoracic spine is intact. Sternum is intact. IMPRESSION: No evidence of pulmonary embolism. Bilateral extensive pulmonary infiltrates are interstitial and airspace infiltrates which are new co mpared to old exam. There is bilateral bronchial adenopathy also new compared to old exam. Abnormalit ies consistent with inflammatory disease.
[2020-03-14] MEDS ORDERED: NALOXONE 0.4 MG/ML 1 ML VIAL IV PRN (18:56)
[2020-03-14 19:11] VITALS: RESP 18
[2020-03-14] MEDS ORDERED: ALBUTEROL HFA INHALER INHALATION PRN (19:40)
[2020-03-14] MEDS ORDERED: ACETAMINOPHEN TAB 325 MG TAB PO PRN (19:40)
--- NOTE | 2020-03-15 00:43 | P.HPIM ---
History of Present Illness H&P Date: 03/14/20 Chief Complaint: difficulty breathing 49 year old with intermittent asthma. patient comes in with 1 week history of URI symptoms, non productive coughing, fever and body aches , that has progressively gotten worse, denies any sore throat, or nasal congestion , denies GI symptoms, denies confusion , no chest pain , no hemoptysis , no headaches. she was tested positive for covid 1 and influenza B , and was given tamiflu. she has been using her inhaler every day , which is unusual for her. today she comes in due to worsening difiiculty in breathing,. no recent travel, but patient had sick contact at work in the ED CTA negative for acute PE, however showed bad inflammatory disease. vital sings showed tachycardia, but patient oxygen sat is wnl on room air. inflammatory markers are elevated. Review of Systems Pertinent positives as noted in HPI. All other systems were reviewed and are negative Past Medical History Past Medical History: Asthma, Deep Vein Thrombosis (DVT), GERD/Reflux, Hypertension, Pneumonia Additional Past Medical History / Comment(s): migraines, hx dvt rt arm, anemia- recieving iron transfusions, pneumonia History of Any Multi-Drug Resistant Organisms: None Reported Past Surgical History: Appendectomy, Orthopedic Surgery, Tubal Ligation Additional Past Surgical History / Comment(s): left knee arthroscopy, left hand surgery-trigger finger, christine-tonsillar abscess surgery. Past Anesthesia/Blood Transfusion Reactions: Previous Problems w/ Anesthesia, Family History of Problems w/ Anesthesia, Motion Sickness, Postoperative Nausea & Vomiting (PONV) Additional Past Anesthesia/Blood Transfusion Reaction / Comment(s): "relaxing medication makes me more anxious". patients son had difficulty waking up Past Psychological History: No Psychological Hx Reported Smoking Status: Never smoker Past Alcohol Use History: Rare Past Drug Use History: None Reported - Past Family History Father Family Medical History: Cancer Additional Family Medical History / Comment(s): skin cancer Medications and Allergies Home Medications Medication Instructions Recorded Confirmed Type Multivitamins, Thera [Multivitamin] 1 tab PO DAILY 02/24/16 03/14/20 History Biotin 5,000 mcg PO DAILY 12/03/18 03/14/20 History Amberen Oral Supplement 2 tab PO DAILY 03/09/20 03/14/20 History Ascorbic Acid [Vitamin C] 1,000 mg PO DAILY 03/09/20 03/14/20 History Cholecalciferol [Vitamin D3 (25 1,000 unit PO DAILY 03/09/20 03/14/20 History Mcg = 1000 Iu)] Omeprazole Magnesium [PriLOSEC OTC] 20 mg PO DAILY 03/09/20 03/14/20 History Acetaminophen Tab [Tylenol] 650 mg PO ONCE PRN 03/14/20 03/14/20 History Albuterol Inhaler [Ventolin Hfa 1 - 2 puff INHALATION RT-Q6H PRN 03/14/20 03/14/20 History Inhaler] Ibuprofen [Motrin Ib] 800 mg PO ONCE PRN 03/14/20 03/14/20 History Allergies Allergy/AdvReac Type Severity Reaction Status Date / Time cefazolin sodium Allergy Rash/Hives Verified 03/14/20 19:42 [From Kefzol] clarithromycin [From Biaxin] Allergy Rash/Hives Verified 03/14/20 19:42 pear Allergy Anaphylaxis Verified 03/14/20 19:42 Physical Exam Vitals: Vital Signs Temp Pulse Resp BP Pulse Ox 03/14/20 19:11 102 H 18 132/90 100 03/14/20 17:26 20 03/14/20 16:26 98.5 F 127 H 23 144/86 97 Intake and Output 03/14/20 03/14/20 03/14/20 06:59 14:59 22:59 Other: Weight 87.09 kg Constitutional: No acute distress, conversant, pleasant Eyes: Anicteric sclerae, moist conjunctiva, Pupils equal round reactive to light ENMT: NC/AT Oropharynx clear, no erythema, no exudates Neck: Supple, FROM, no masses, or JVD No carotid bruits No thyromegaly Lungs: Clear to auscultation Clear to percussion Normal respiratory effort, no accessory muscle use Cardiovascular: Heart regular in rate and rhythm, No murmurs, gallops, or rubs No peripheral edema Abdominal: Soft Nontender, no guarding, rebound or rigidity Abdomen moving with respiration Normoactive bowel sounds No hepatomegaly, No splenomegaly No palpable mass No abdominal wall hernia noted Skin: Normal temperature, tone, texture, turgor No induration No subcutaneous nodules No rash, lesions No ulcers Extremities: No digital cyanosis No clubbing Pedal pulses intact and symmetrical Radial pulses intact and symmetrical No calf tenderness Psychiatric: Alert and oriented to person, place and time Appropriate affect fair judgement Neuro Muscles Strength 5/5 in all 4 extremities Sensation to light touch grossly present throughout Cranial nerves II-XII grossly intact No focal sensory deficits Lymphatics: no palpable cervical or supraclavicular , or inguinal lymph nodes Results CBC & Chem 7: 03/14/20 16:06 03/14/20 16:06 Labs: Abnormal Lab Results - Last 24 Hours (Table) 03/14/20 03/14/20 03/14/20 Range/Units 16:06 16:06 16:06 RBC 6.00 H (3.80-5.40) m/uL MCV 73.8 L (80.0-100.0) fL MCH 24.1 L (25.0-35.0) pg RDW 20.7 H (11.5-15.5) % D-Dimer 0.68 H (<0.60) mg/L FEU Sodium 135 L (137-145) mmol/L AST 96 H (14-36) U/L ALT 118 H (4-34) U/L Lactate Dehydrogenase 955 H (313-618) U/L C-Reactive Protein 47.1 H (<10.0) mg/L Total Protein 8.5 H (6.3-8.2) g/dL Assessment and Plan Assessment: acute viral pneumonnitis with covid 19 positive, and influenza B s/p tamiflu OP close monitor of vital sings supportive care supplemental oxygen aas needed to keep O2 above 92% if hypoxemia , then will start decadrone zinc, vit c, vit D, melatonin hepairn sc for DVT ppx CTA negative for acute PE sinus tachycardia hypertension resume home meds intermittent asthma , albuterol linhaler as needed CODE STATUS:full code DVT prophylaxis: heparin sc tid Discussed with: Patient, ER Anticipated length of stay > than [address]: home A total of 75 minutes was spent on the care of this complex patient more than 50% of the time was spent in counseling and care coordination.
[2020-03-15] MEDS ORDERED: SODIUM CHLORIDE 0.9% 1,000 ML IV SCH (01:00)
[2020-03-15 06:20] LABS: ALT 96 U/L (4-34); AST 58 U/L (14-36); African American GFR (CKD) >90 (>60 ml/min/1.73 sqM); Albumin 4.2 g/dL (3.5-5.0); Alkaline Phosphatase 62 U/L (38-126); Anion Gap 7 mmol/L; Blood Urea Nitrogen 9 mg/dL (7-17); C Reactive Protein 51.1 mg/L (<10.0); Calcium 9.6 mg/dL (8.4-10.2); Carbon Dioxide 25 mmol/L (22-30); Chloride 104 mmol/L (98-107); Creatine Kinase 78 U/L (30-135); Glucose 157 mg/dL (74-99); Magnesium 2.2 mg/dL (1.6-2.3); Non-African American GFR(CKD) >90 (>60 ml/min/1.73 sqM); Potassium 4.7 mmol/L (3.5-5.1); Sodium 136 mmol/L (137-145); Total Bilirubin 0.4 mg/dL (0.2-1.3); Total Protein 7.6 g/dL (6.3-8.2)
[2020-03-15 06:44] LABS: Anisocytosis Moderate; Basophils % (A) 0 %; Eosinophils % (A) 0 %; HCT 42.2 % (34.0-46.0); HGB 13.3 gm/dL (11.4-16.0); Hypochromasia Slight; Lymphocytes # (A) 0.9 k/uL (1.0-4.8); Lymphocytes % (A) 22 %; MCH 23.5 pg (25.0-35.0); MCHC 31.5 g/dL (31.0-37.0); MCV 74.6 fL (80.0-100.0); Mean Platelet Volume 8.2; Microcytosis Marked; Monocytes # (A) 0.1 k/uL (0-1.0); Monocytes % (A) 3 %; Neutrophils % (A) 72 %; Platelet Count 300 k/uL (150-450); RBC 5.66 m/uL (3.80-5.40); RDW 20.5 % (11.5-15.5); WBC 4.1 k/uL (3.8-10.6)
[2020-03-15] MEDS ORDERED: ZINC SULFATE 220 MG CAP PO SCH (09:00)
[2020-03-15] MEDS ORDERED: ASCORBIC ACID 500 MG TAB PO SCH (09:00)
[2020-03-15] MEDS ORDERED: PANTOPRAZOLE 40 MG TABLET PO SCH (09:00)
[2020-03-15] MEDS ORDERED: ENOXAPARIN 40 MG/0.4 ML SYRINGE SQ SCH (09:00)
[2020-03-15] MEDS ORDERED: CHOLECALCIFEROL 1,000 UNIT TAB PO SCH (09:00)
[2020-03-15] MEDS ORDERED: dexAMETHasone 2 MG TAB PO SCH (09:15)
[2020-03-15 10:16] VITALS: BP 131/84; PULSE 99; TEMP 98.4
--- NOTE | 2020-03-15 16:37 | P.DS ---
Providers Date of admission: 03/14/20 18:40 Expected date of discharge: 03/15/20 Attending physician: Fernanda Rendon DO Primary care physician: LILIYA Wilkerson Hospital Course: Discharge Diagnosis: Covid 19 pneumonitis Recent influenza B infection Hypertension Mild intermittent asthma without acute exacerbation. Transaminitis Elevated d-dimer reflective of COVID 19 infection Hospital Course: Patient is a 49-year-old female with a history of asthma, DVT, GERD, hypertension, and pneumonia who presented to the emergency department with complaints of upper respiratory symptoms for 1 week duration. Her had been positive for COVID 19 infection. Approximately one week ago she was tested for Covid 19 and influenza B positive and she completed a course of Tamiflu. Repeat testing in the ER was negative for influenza B. In the ER she underwent an extensive evaluation. She was found have Covid pneumonitis. She was started on dexamethasone, zinc, vitamin C, vitamin D, Pepcid, and melatonin. Arrnagement were made for admission. Her oxygenation remained stable. She was not requiring any supplemental oxygen. By the morning after admission she was already feeling better after the dexamethasone. She is asking to be discharged home. She will obtain a home pulse oximeter and monitor for any oxygenation levels of less than 90% and will return to the emergency department. She is aware of all the rules for both isolation and quarantine. She will return to the ER if worsening symptoms. Patient improved faster than anticipated with subsequently discharged home in less than 2 minutes. Patient seen and examined at bedside. Breathing stable from yesterday, still with some biopsy aches, stress-induced incontinence, cough is okay. She states she is feeling much better than when she came to the ER on 03/14. Vital signs reviewed and stable. General: non toxic, no distress, appears at stated age Derm: warm, dry Head: atraumatic, normocephalic, symmetric Eyes: EOMI, no lid lag, anicteric sclera Mouth: no lip lesion, mucus membranes moist Cardiovascular: S1S2 reg, no murmur, positive posterior tibial pulse bilateral, Lungs: Course breath sounds bilateral, no rhonchi, no rales , no accessory muscle use Abdominal: soft, nontender to palpation, no guarding, no appreciable organomegaly Ext: no gross muscle atrophy, no edema, no contractures Neuro: CN II-XI grossly intact, no focal neuro deficits Psych: Alert, oriented, appropriate affect A total of 35 minutes of time were spent preparing this complex discharge summary . Patient Condition at Discharge: Stable Plan - Discharge Summary New Discharge Prescriptions: New dexAMETHasone [Hexadrol] 6 mg PO DAILY #8 tab Melatonin 10 mg PO DAILY #15 tablet Zinc Sulfate [Orazinc] 220 mg PO DAILY #15 cap dexAMETHasone [Dexamethasone] 6 mg PO DAILY #19 tablet Continue Multivitamins, Thera [Multivitamin (formulary)] 1 tab PO DAILY Biotin 5,000 mcg PO DAILY Cholecalciferol [Vitamin D3 (25 Mcg = 1000 Iu)] 1,000 unit PO DAILY Amberen Oral Supplement 2 tab PO DAILY Omeprazole Magnesium [PriLOSEC OTC] 20 mg PO DAILY Ascorbic Acid [Vitamin C] 1,000 mg PO DAILY Ibuprofen [Motrin Ib] 800 mg PO ONCE PRN PRN Reason: Pain Albuterol Inhaler [Ventolin Hfa Inhaler] 1 - 2 puff INHALATION RT-Q6H PRN PRN Reason: Shortness Of Breath Acetaminophen Tab [Tylenol] 650 mg PO ONCE PRN PRN Reason: Pain Discharge Medication List Multivitamins, Thera [Multivitamin (formulary)] 1 tab PO DAILY 02/24/16 [History] Biotin 5,000 mcg PO DAILY 12/03/18 [History] Amberen Oral Supplement 2 tab PO DAILY 03/09/20 [History] Ascorbic Acid [Vitamin C] 1,000 mg PO DAILY 03/09/20 [History] Cholecalciferol [Vitamin D3 (25 Mcg = 1000 Iu)] 1,000 unit PO DAILY 03/09/20 [History] Omeprazole Magnesium [PriLOSEC OTC] 20 mg PO DAILY 03/09/20 [History] Acetaminophen Tab [Tylenol] 650 mg PO ONCE PRN 03/14/20 [History] Albuterol Inhaler [Ventolin Hfa Inhaler] 1 - 2 puff INHALATION RT-Q6H PRN 03/14/20 [History] Ibuprofen [Motrin Ib] 800 mg PO ONCE PRN 03/14/20 [History] Melatonin 10 mg PO DAILY #15 tablet 03/15/20 [Rx] Zinc Sulfate [Orazinc] 220 mg PO DAILY #15 cap 03/15/20 [Rx] dexAMETHasone [Dexamethasone] 6 mg PO DAILY #19 tablet 03/15/20 [Rx] dexAMETHasone [Hexadrol] 6 mg PO DAILY #8 tab 03/15/20 [Rx] Follow up Appointment(s)/Referral(s): hCela Segura NPC [Primary Care Provider] - 1-2 days Activity/Diet/Wound Care/Special Instructions: Activity: as tolerated Diet: regular Special Instructions: albuterol 2 puffs 4 times daily for the next week, and as needed for shortness of breath Obtain a pulse ox machine and monitor oxygen levels if less than 90 return to the emergency department Discharge Disposition: HOME SELF-CARE
== END 2020-03-15 10:16 | disposition home or self-care (01) | DRG 177 ==
LOC: EC 16:17 → 3SCARD 18:40 → 4SSUR 03-15 08:20
PROVIDERS: ADMIT Internal Medicine; ATTEND Internal Medicine
DX: U07.1 COVID-19 (principal); J12.89 Other viral pneumonia; J10.08 Influenza due to other identified influenza virus with other specified pneumonia; J45.20 Mild intermittent asthma, uncomplicated; I10 Essential (primary) hypertension; K21.9 Gastro-esophageal reflux disease without esophagitis; G43.909 Migraine, unspecified, not intractable, without status migrainosus; R00.0 Tachycardia, unspecified; R74.01 Elevation of levels of liver transaminase levels; Z79.899 Other long term (current) drug therapy; Z87.01 Personal history of pneumonia (recurrent); Z86.718 Personal history of other venous thrombosis and embolism; Z90.49 Acquired absence of other specified parts of digestive tract; Z98.51 Tubal ligation status; Z98.890 Other specified postprocedural states; Z88.1 Allergy status to other antibiotic agents; Z88.8 Allergy status to other drugs, medicaments and biological substances; Z91.018 Allergy to other foods; Z80.8 Family history of malignant neoplasm of other organs or systems
CPT/HCPCS: 36415; 71045; 71275; 80053; 82550; 82728; 83605; 83615; 83735; 83880; 84145; 84484; 85025; 85379; 85610; 85730; 86140; 87040; 93005; 94640; 96360; 96372; 99285

== ENCOUNTER → 2020-10-01 | Outpatient (CLI) | payer BC ==
[2020-10-01 10:53] LABS: Potassium 4.3 mmol/L (3.5-5.1)
[2020-10-01 10:56] LABS: ALT 435 U/L (4-34); AST 546 U/L (14-36); African American GFR (CKD) >90 (>60 ml/min/1.73 sqM); Albumin 4.3 g/dL (3.5-5.0); Alkaline Phosphatase 79 U/L (38-126); Anion Gap 6 mmol/L; Bilirubin,Unconjugated 0.4 mg/dL (0.0-1.1); Blood Urea Nitrogen 10 mg/dL (7-17); Calcium 9.6 mg/dL (8.4-10.2); Carbon Dioxide 28 mmol/L (22-30); Chloride 104 mmol/L (98-107); Glucose 93 mg/dL (74-99); Non-African American GFR(CKD) >90 (>60 ml/min/1.73 sqM); Sodium 138 mmol/L (137-145); Total Bilirubin 0.4 mg/dL (0.2-1.3); Total Protein 7.4 g/dL (6.3-8.2)
--- NOTE | 2020-10-01 16:07 | US ---
EXAMINATION TYPE: US abdomen complete DATE OF EXAM: 10/01/2020 COMPARISON: 10/17/2018 CLINICAL HISTORY: R74.01 ELEVATED TRANSAMINASE LEVELS. Elevated labs, patient had Covid in March 02 and has not felt good since, bloating EXAM MEASUREMENTS: Liver Length: 18.1 cm Gallbladder Wall: 0.2 cm CBD: 0.4 cm Spleen: 14.6 cm splenomegaly. Right Kidney: 9.9 x 4.6 x 5.0 cm Left Kidney: 11.3 x 4.8 x 6.1 cm Pancreas: limited views due to bowel gas Liver: heterogeneous and difficult to penetrate Gallbladder: wnl Evidence for sonographic Jaime's sign: no CBD: wnl Spleen: Enlarged Right Kidney: superior pole cyst seen = 3.0cm Left Kidney: wnl Upper IVC: wnl Abd Aorta: limited views due to bowel gas IMPRESSION: 1. Limited visualization of the pancreas, liver and abdominal aorta due to overlying bowel gas. 2. The liver is heterogeneous but difficult to visualize on this study. 3. The spleen is enlarged measuring up to 14.6 cm in length. 4. No gallstones, sludge or pericholecystic fluid. 5. Right upper pole renal cyst measuring 3 cm.
[2020-10-02 04:01] LABS: Hepatitis A Antibody IgM Non-Reactive (Non-Reactive); Hepatitis B Core IgM Non-Reactive (Non-Reactive); Hepatitis B Surface Antigen Non-Reactive (Non-Reactive); Hepatitis C IgG Antibody Non-Reactive (Non-Reactive)
[2020-10-02 05:27] LABS: EBV - VCA IgM <10.0 U/mL (<36.0)
[2020-10-02 15:32] LABS: % Iron Saturation 15.88 (12.00-45.00); Iron 64 ug/dL (50-170); Total Iron Binding Capacity 403 ug/dL (228-460)
[2020-10-02 17:11] LABS: Ceruloplasmin 41.7 mg/dL (20.0-60.0)
== END | disposition home or self-care (01) ==
LOC: RADUSWWP 09:29
PROVIDERS: ATTEND Internal Medicine
DX: R74.01 Elevation of levels of liver transaminase levels (principal); R16.1 Splenomegaly, not elsewhere classified; N28.1 Cyst of kidney, acquired; R93.2 Abnormal findings on diagnostic imaging of liver and biliary tract; Z86.16 Personal history of COVID-19
CPT/HCPCS: 76700; 80053; 80074; 82248; 82390; 82525; 83516; 83540; 83550; 86038; 86645; 86665; 86780

== ENCOUNTER 2021-10-01 08:30 | Day surgery (SDC) | payer BC ==
[2021-09-29 15:05] VITALS: BMI 34.8
[2021-10-01 09:29] VITALS: TEMP 97.5
[2021-10-01] MEDS ORDERED: PROPOFOL 10 MG/ML 20 ML VIAL IV ONE (10:18)
--- NOTE | 2021-10-01 10:39 | P.PCN ---
Date of Procedure: 10/01/21 Procedure(s) Performed: BRIEF HISTORY: Patient is a 50-year-old pleasant white female scheduled for an elective colonoscopy as a part of evaluation change in bowel habits and abnormal CAT scan that showed a abnormality in the base of the cecum. PROCEDURE PERFORMED: Colonoscopy. PREOPERATIVE DIAGNOSIS: Change in bowel habits and abdominal CAT scan of abdomen. IV sedation per Anesthesia. PROCEDURE: After informed consent was obtained, the patient, was brought into the endoscopy unit. IV sedation was administered by Anesthesia under continuous monitoring. Digital rectal examination was normal. Initially the Olympus CF-160 flexible video colonoscope was then inserted in the rectum, gradually advanced into the cecum without any difficulty. Careful examination was performed as the scope was gradually being withdrawn. Ileocecal valve and the appendiceal orifice were visualized and appeared normal. Prep was excellent. Mucosa of the cecum, ascending colon, transverse colon, descending colon, sigmoid colon, and rectum appeared normal. Retroflexion was performed in the rectum and no lesions were seen. The patient tolerated the procedure well. IMPRESSION: Normal-appearing colon from rectum to cecum no evidence of colorectal neoplasia . RECOMMENDATIONS: Findings of this examination were discussed with the patient is a family. She was advised to have a repeat screening colonoscopy in 5 years from now because of the prior history of colon polyps..
[2021-10-01 11:13] VITALS: BP 141/85; PULSE 60; RESP 16
== END 2021-10-01 11:09 | disposition home or self-care (01) ==
LOC: ORWHC2ENDO 08:30
PROVIDERS: ATTEND Internal Medicine Gastroenterology
DX: R19.4 Change in bowel habit (principal); R94.8 Abnormal results of function studies of other organs and systems; Z86.010 Personal history of colon polyps; Z79.899 Other long term (current) drug therapy; I10 Essential (primary) hypertension; K21.9 Gastro-esophageal reflux disease without esophagitis; Z98.51 Tubal ligation status; Z98.890 Other specified postprocedural states; Z88.4 Allergy status to anesthetic agent; Z88.1 Allergy status to other antibiotic agents; Z88.5 Allergy status to narcotic agent
CPT/HCPCS: 45378; J2704

== ENCOUNTER → 2022-03-10 | Outpatient (CLI) | payer BC ==
--- NOTE | 2022-03-10 15:31 | CT ---
EXAMINATION TYPE: CT chest wo con CT DLP: 1423.1 mGycm, Automated exposure control for dose reduction was used. DATE OF EXAM: 03/10/2022 3:24 PM COMPARISON: CT chest abdomen 09/04/2018 CLINICAL INDICATION:Female, 51 years old with history of R05.3 chronic cough; PHH, c/o chronic cough TECHNIQUE: Multiple axial images were obtained through the chest without IV contrast. Supine and pron e imaging was obtained. Lack of IV or oral contrast limits evaluation of solid and hollow organ visce ra. FINDINGS: LUNGS/ PLEURA: No pneumothorax, pleural effusion, or focal consolidation. No suspicious pulmonary nod ule or mass. No evidence of interstitial thickening, significant groundglass opacity, honeycombing, or architectural distortion in the lungs. No bronchiectasis. AIRWAY: Patent and unremarkable.. HEART: Size within normal limits. No pericardial effusion. Mild coronary arterial calcifications. MEDIASTINUM: No gross evidence of adenopathy. VASCULATURE: No aortic aneurysm. MUSCULOSKELETAL: No acute osseous abnormalities SOFT TISSUES/LYMPH NODES: Unremarkable. LOWER NECK: No significant findings. UPPER ABDOMEN: No significant findings. IMPRESSION: No acute thoracic process or evidence of interstitial lung disease.
== END | disposition home or self-care (01) ==
LOC: RADCTMAIN 15:04
PROVIDERS: ATTEND Internal Medicine Critical Care Medicine
DX: R05.3 Chronic cough (principal)
CPT/HCPCS: 71250

== ENCOUNTER 2022-03-15 11:02 | Day surgery (SDC) | payer BC ==
[2022-03-14 09:59] VITALS: BMI 36.3
[~2022-03-15 11:02] MED LIST changes: +ALBUTEROL NEB (CONC) 2.5 MG/0.5 ML INHALATION ONE; +ATROPINE SULFATE 0.4 MG/ML 1 ML VIAL IM ONE; +LIDOCAINE 2% (PF) 20 MG/ML 5 ML VIAL INHALATION ONE; +LIDOCAINE VISCOUS 300 MG/15 ML CUP MUCOUS MEM ONE
[2022-03-15 12:24] VITALS: TEMP 98
[2022-03-15] MEDS ORDERED: KETAMINE 10 MG/ML 20 ML VIAL ONE (12:30)
[2022-03-15] MEDS ORDERED: PROPOFOL 10 MG/ML 20 ML VIAL IV ONE (12:30)
[2022-03-15] MEDS ORDERED: GLYCOPYRROLATE 0.2 MG/ML 2 ML VIAL ONE (12:30)
[2022-03-15] MEDS ORDERED: MIDAZOLAM 2 MG/2 ML VIAL ONE (12:30)
[2022-03-15] MEDS ORDERED: LIDOCAINE 2% INJ 20 MG/ML (2 ML VIAL) ONE (12:30)
[2022-03-15] MEDS ORDERED: LIDOCAINE 2% (PF) 20 MG/ML 2 ML VIAL MISCELLANE ONE (12:47)
[2022-03-15 13:41] VITALS: BP 110/75; PULSE 86; RESP 16
--- NOTE | 2022-03-15 19:39 | PCN ---
PROCEDURE NOTE Pulmonary/Critical Care Procedure Note PROCEDURES PERFORMED: Bronchoscopy, airway examination, therapeutic lavage, and BAL right middle lobe. PREOPERATIVE DIAGNOSIS: Rule out infection. POSTOPERATIVE DIAGNOSIS: Rule out infection. CO-SURGEON: Dr. Ridley. There was informed consent and universal timeout. ANESTHESIA: Provided general anesthesia. DESCRIPTION OF PROCEDURE: The patient's procedure was done in room #1 in [facility]. After the patient was adequately sedated and being fully monitored, the bronchoscope was inserted through right nostril. It passed through the right nasopharynx into the oropharynx. The hypopharynx was identified and topicalized. Hypopharyngeal structures including anterior commissure, true cords, false cords, piriform sinuses right and left, epiglottis, vallecula, were all evaluated. Everything appeared relatively normal in the hypopharynx. The glottic opening was topicalized. The bronchoscope was pushed through the glottic opening into the trachea. Trachea appeared normal. Tracheal olayinka was sharp. The right and left mainstem were topicalized. Right upper lobe and its 3 segments, right middle lobe and its 2 segments, right lower lobe and its 5 segments, the left upper lobe proper and its 2 segments, the lingula and its 2 segments and the left lower lobe with 4 segments all had similar findings of significant airway erythema and hyperemia. There was vascular engorgement. There was some mucosal friability. The mucosa bled easily. There was no endobronchial mass or tumor. There were mostly thin secretions noted. Nothing that looked like purulence. The bronchoscope was then wedged into the right middle lobe. A formal BAL took place. The patient tolerated the procedure well. The fluid will be sent for analysis including cytology, and microbiology. The bronchoscope was withdrawn and the patient tolerated the procedure well without complication. The patient will be recovered. MMODL / IJN: [id number] /
[2022-03-16 02:14] LABS: Appearance,BF Cloudy
== END 2022-03-15 13:55 | disposition home or self-care (01) ==
LOC: ORWHC2ENDO 11:02
PROVIDERS: ATTEND Internal Medicine Critical Care Medicine
DX: J45.909 Unspecified asthma, uncomplicated (principal); J12.82 Pneumonia due to coronavirus disease 2019; M06.9 Rheumatoid arthritis, unspecified; Z79.51 Long term (current) use of inhaled steroids; Z90.710 Acquired absence of both cervix and uterus; Z90.49 Acquired absence of other specified parts of digestive tract; Z98.51 Tubal ligation status
CPT/HCPCS: 88108; 88305; 89050; 87252; 87070; 87205; 87116; 87102; 87206; 31624; J2250; J2704; J2001 ×2

== ENCOUNTER 2022-04-18 11:20 | Emergency (ER) | payer BC ==
[2022-04-18 11:36] VITALS: TEMP 96.9
[2022-04-18] MEDS ORDERED: diphenhydrAMINE 50 MG/ML 1 ML VIAL IVP STA (11:56)
[2022-04-18] MEDS ORDERED: KETOROLAC 15 MG/ML 1 ML VIAL IVP STA (11:56)
[2022-04-18] MEDS ORDERED: PROCHLORPERAZINE INJ 10 MG/2 ML VIAL IVP STA (11:56)
[2022-04-18] MEDS ORDERED: SODIUM CHLORIDE 0.9% 1,000 ML IV ONE (12:01)
--- NOTE | 2022-04-18 12:01 | ED ---
General Adult HPI - General Chief complaint: Headache Stated complaint: Headache Time Seen by Provider: 04/18/22 11:44 Source: patient, RN notes reviewed Mode of arrival: ambulatory Limitations: no limitations - History of Present Illness Initial comments: 51-year-old female with past medical history of migraines since to the emergency department with headache. She was started on brestree. For a chronic cough by her primary care notes that her blood pressure has been high and she has had a generalized headache ever since. She reports 2 episodes of an intense sharp pain that lasts 5 minutes and turns into a dull ache. She has not tried anything for his symptoms. She complains of accompanying symptoms of feeling chilled, dizzy, lightheaded, photophobia. She has history of migraines however she feels that this headache is different. Upon obtaining the history she notes she is feeling a sharp pain in her right eye. Denies chest pain, shortness of breath, palpitations, abdominal pain, dysuria, hematuria - Related Data Home Medications Medication Instructions Recorded Confirmed Multivitamins, Thera [Multivitamin 1 tab PO DAILY 02/24/16 03/15/22 (formulary)] Biotin [Biotin Disolve] 5,000 mcg PO DAILY 12/03/18 03/15/22 Ascorbic Acid [Vitamin C] 1,000 mg PO DAILY 03/09/20 03/15/22 Cholecalciferol [Vitamin D3 (25 1,000 unit PO DAILY 03/09/20 03/15/22 Mcg = 1000 Iu)] Albuterol Inhaler [Ventolin Hfa 1 - 2 puff INHALATION RT-Q6H PRN 03/14/20 03/15/22 Inhaler] Pantoprazole Sodium 20 mg PO BID 09/29/21 03/15/22 Albuterol Nebulized [Ventolin 1.25 mg INHALATION TID PRN 03/14/22 03/15/22 Nebulized (Accuneb)] Metoprolol Tartrate [Lopressor] 50 mg PO BID 03/14/22 03/15/22 Turmeric Root Extract [Turmeric] 1,053 mg PO DAILY 03/14/22 03/15/22 Zinc(Dose Unknown) 1 tab PO DAILY 03/14/22 03/15/22 estradioL [estradioL (Once Weekly) 1 patch TRANSDERM HAYES 03/14/22 03/15/22 0.025 mg Patch] Allergies Allergy/AdvReac Type Severity Reaction Status Date / Time cefazolin [From Kefzol] Allergy Rash/Hives Verified 04/18/22 11:33 clarithromycin [From Biaxin] Allergy Rash/Hives Verified 04/18/22 11:33 fentanyl Allergy Rash/Hives Verified 04/18/22 11:33 pear Allergy Anaphylaxis Verified 04/18/22 11:33 Opioids - Morphine Analogues AdvReac Rash/Hives Verified 04/18/22 11:33 Review of Systems ROS Statement: Those systems with pertinent positive or pertinent negative responses have been documented in the HPI. ROS Other: All systems not noted in ROS Statement are negative. Past Medical History Past Medical History: Asthma, Deep Vein Thrombosis (DVT), GERD/Reflux, Hypertension, Rheumatoid Arthritis (RA) Additional Past Medical History / Comment(s): migraines, "high heart rate", hx dvt rt arm, cough for past 4 months, "weak bladder" History of Any Multi-Drug Resistant Organisms: None Reported Past Surgical History: Appendectomy, Hysterectomy, Orthopedic Surgery, Tubal Ligation Additional Past Surgical History / Comment(s): left knee arthroscopy x 2, left hand surgery-trigger finger, christine-tonsillar abscess surgery. surgery to remove ovarian cyst Past Anesthesia/Blood Transfusion Reactions: Previous Problems w/ Anesthesia, Family History of Problems w/ Anesthesia, Motion Sickness, Postoperative Nausea & Vomiting (PONV) Additional Past Anesthesia/Blood Transfusion Reaction / Comment(s): "relaxing medication makes me more anxious". patients son had difficulty waking up-"to much anesthesia" Past Psychological History: No Psychological Hx Reported Smoking Status: Never smoker Past Alcohol Use History: None Reported Past Drug Use History: None Reported - Past Family History Father Additional Family Medical History / Comment(s): skin cancer Mother Family Medical History: No Reported History General Exam Limitations: no limitations General appearance: alert, in no apparent distress Head exam: Present: atraumatic, normocephalic, normal inspection Eye exam: Present: normal appearance, PERRL, EOMI. Absent: scleral icterus, conjunctival injection, periorbital swelling ENT exam: Present: normal exam, mucous membranes moist Neck exam: Present: normal inspection. Absent: tenderness, meningismus, lymphadenopathy Respiratory exam: Present: normal lung sounds bilaterally. Absent: respiratory distress, wheezes, rales, rhonchi, stridor Cardiovascular Exam: Present: regular rate, normal rhythm, normal heart sounds. Absent: systolic murmur, diastolic murmur, rubs, gallop, clicks GI/Abdominal exam: Present: soft, normal bowel sounds. Absent: distended, tenderness, guarding, rebound, rigid Extremities exam: Present: normal inspection, full ROM, normal capillary refill. Absent: tenderness, pedal edema, joint swelling, calf tenderness Back exam: Present: normal inspection Neurological exam: Present: alert, oriented X3, CN II-XII intact Psychiatric exam: Present: normal affect, normal mood Skin exam: Present: warm, dry, intact, normal color. Absent: rash Course Vital Signs 04/18/22 04/18/22 04/18/22 11:33 12:54 16:03 Temperature 96.9 F L Pulse Rate 73 63 Respiratory 16 18 Rate Blood Pressure 176/93 152/89 153/82 O2 Sat by Pulse 96 98 Oximetry - Reevaluation(s) Reevaluation #1: 04/18/22 13:56 Patient reevaluated. Patient states that migraine cocktail improved her headache. Medical Decision Making - Medical Decision Making 51-year-old female presenting to the emergency department for headache . Patient was seen and evaluated. Patient had lab Work and imaging performed in the ED I interpreted the following: Chest x-ray negative for any acute process. Head CT negative for intracranial hemorrhage. Labs remarkable for WBC 17.6, elevation likely due to patient taking steroid course. I discussed in detail the results the patient. Patient verbalized understanding and to follow up with primary care as needed. Return precautions discussed. He should discharged in stable condition. I discussed the case with Dr. Baig who agrees with plan of care. - Lab Data Result diagrams: 04/18/22 12:44 04/18/22 12:44 Lab Results 04/18/22 04/18/22 04/18/22 Range/Units 12:44 12:44 12:44 WBC 17.4 H (3.8-10.6) k/uL RBC 5.27 (3.80-5.40) m/uL Hgb 15.7 (11.4-16.0) gm/dL Hct 45.6 (34.0-46.0) % MCV 86.5 (80.0-100.0) fL MCH 29.7 (25.0-35.0) pg MCHC 34.4 (31.0-37.0) g/dL RDW 12.8 (11.5-15.5) % Plt Count 365 (150-450) k/uL MPV 7.7 Neutrophils % 87 % Lymphocytes % 10 % Monocytes % 2 % Eosinophils % 0 % Basophils % 0 % Neutrophils # 15.2 H (1.3-7.7) k/uL Lymphocytes # 1.7 (1.0-4.8) k/uL Monocytes # 0.3 (0-1.0) k/uL Eosinophils # 0.1 (0-0.7) k/uL Basophils # 0.1 (0-0.2) k/uL Sodium 137 (137-145) mmol/L Potassium 4.9 (3.5-5.1) mmol/L Chloride 105 (98-107) mmol/L Carbon Dioxide 24 (22-30) mmol/L Anion Gap 8 mmol/L BUN 17 (7-17) mg/dL Creatinine 0.71 (0.52-1.04) mg/dL Est GFR (CKD-EPI)AfAm >90 (>60 ml/min/1.73 sqM) Est GFR (CKD-EPI)NonAf >90 (>60 ml/min/1.73 sqM) Glucose 125 H (74-99) mg/dL Calcium 9.5 (8.4-10.2) mg/dL Total Bilirubin 0.6 (0.2-1.3) mg/dL AST 45 H (14-36) U/L ALT 45 H (4-34) U/L Alkaline Phosphatase 72 (38-126) U/L Total Protein 7.6 (6.3-8.2) g/dL Albumin 4.5 (3.5-5.0) g/dL Influenza Type A (PCR) Not Detected (Not Detectd) Influenza Type B (PCR) Not Detected (Not Detectd) RSV (PCR) Not Detected (Not Detectd) SARS-CoV-2 (PCR) Not Detected (Not Detectd) Disposition Clinical Impression: Headache Disposition: HOME SELF-CARE Condition: Stable Additional Instructions: Please return to the nearest ED if symptoms change, blurred vision, dizziness, worsening headache. Is patient prescribed a controlled substance at d/c from ED?: No Referrals: Bob Mcgill MD [Primary Care Provider] - 1-2 days Time of Disposition: 15:25
[2022-04-18 13:03] LABS: Basophils # (A) 0.1 k/uL (0-0.2); Basophils % (A) 0 %; Eosinophils # (A) 0.1 k/uL (0-0.7); Eosinophils % (A) 0 %; HCT 45.6 % (34.0-46.0); HGB 15.7 gm/dL (11.4-16.0); Lymphocytes # (A) 1.7 k/uL (1.0-4.8); Lymphocytes % (A) 10 %; MCH 29.7 pg (25.0-35.0); MCHC 34.4 g/dL (31.0-37.0); MCV 86.5 fL (80.0-100.0); Mean Platelet Volume 7.7; Monocytes # (A) 0.3 k/uL (0-1.0); Monocytes % (A) 2 %; Neutrophils # (A) 15.2 k/uL (1.3-7.7); Neutrophils % (A) 87 %; Platelet Count 365 k/uL (150-450); RBC 5.27 m/uL (3.80-5.40); RDW 12.8 % (11.5-15.5); WBC 17.4 k/uL (3.8-10.6)
[2022-04-18 13:15] LABS: ALT 45 U/L (4-34); African American GFR (CKD) >90 (>60 ml/min/1.73 sqM); Albumin 4.5 g/dL (3.5-5.0); Anion Gap 8 mmol/L; Blood Urea Nitrogen 17 mg/dL (7-17); Calcium 9.5 mg/dL (8.4-10.2); Carbon Dioxide 24 mmol/L (22-30); Chloride 105 mmol/L (98-107); Glucose 125 mg/dL (74-99); Non-African American GFR(CKD) >90 (>60 ml/min/1.73 sqM); Sodium 137 mmol/L (137-145); Total Bilirubin 0.6 mg/dL (0.2-1.3); Total Protein 7.6 g/dL (6.3-8.2)
[2022-04-18 13:17] LABS: Potassium 4.9 mmol/L (3.5-5.1)
[2022-04-18 13:18] LABS: AST 45 U/L (14-36); Alkaline Phosphatase 72 U/L (38-126)
--- NOTE | 2022-04-18 13:55 | CT ---
EXAMINATION TYPE: CT brain wo con DATE OF EXAM: 04/18/2022 COMPARISON: 02/24/2016 INDICATION: Acute headache. Hx of HTN, migraines DLP: 1129.4 mGycm, Automated exposure control for dose reduction was used. CONTRAST: None CT of the brain is performed utilizing 3 mm thick sections through the posterior fossa and 3 mm thick sections through the remaining calvarium. Study is performed within 24 hours of arrival to the hosp [facility]. No abnormal hyperdensity is present to suggest an acute intracranial hemorrhage. No mass lesion is evident. No acute infarcts are evident. Ventricles and sulci are appropriate for the patient age. Paranasal sinuses and mastoid air cells within the [id number] are clear. IMPRESSIONS: 1. No acute intracranial process. Follow-up MRI can be performed as clinically indicated.
--- NOTE | 2022-04-18 14:04 | XR ---
EXAMINATION TYPE: XR chest 2V DATE OF EXAM: 04/18/2022 COMPARISON: Chest CT March 10, 2022 HISTORY: Headache and weakness. TECHNIQUE: Frontal and lateral views of the chest are obtained. FINDINGS: There is no focal air space opacity, pleural effusion, or pneumothorax seen. The cardiac silhouette size is mildly enlarged. The osseous structures are intact. IMPRESSION: Mild cardiomegaly without acute pulmonary process.
[2022-04-18 16:04] VITALS: BP 153/82; PULSE 63; RESP 18
== END 2022-04-18 16:04 | disposition home or self-care (01) ==
LOC: EC 11:20
DX: R51.9 Headache, unspecified (principal); I10 Essential (primary) hypertension; J45.909 Unspecified asthma, uncomplicated; K21.9 Gastro-esophageal reflux disease without esophagitis; Z88.1 Allergy status to other antibiotic agents; Z88.5 Allergy status to narcotic agent; Z88.8 Allergy status to other drugs, medicaments and biological substances; Z79.899 Other long term (current) drug therapy
CPT/HCPCS: 36415; 80053; 85025; 87636; 71046; 70450; 99284; 96374; 96375 ×2; 96361; J1200; J0780; J1885

== ENCOUNTER → 2022-04-29 | Outpatient (CLI) | payer BC ==
--- NOTE | 2022-04-29 19:52 | MR ---
EXAMINATION TYPE: MR angio head wo con DATE OF EXAM: 04/29/2022 7:18 PM CLINICAL INDICATION:Female, 51 years old with history of G44.52 NEW DAILY PERSISTENT HEADACHE; COMPARISON: CT brain 04/18/2022 Technical: 3-D [id number] Axial with MIP reconstruction. IV Contrast: None Findings: Vertebral arteries: The vertebral arteries are patent. The right vertebral artery is dominant. Basilar artery: The basilar artery is intact. The basilar artery bifurcation is normal. Internal Carotid arteries: The cervical, petrous, cavernous and supraclinoid segments are normal. KVNG: Patent with no evidence of aneurysm. ACOM: Present without evidence of aneurysm. MCA: Patent with no evidence of aneurysm. METAL DIE FINISHER: origin of left posterior cerebral artery. Both patent without evidence of aneurysm. PCOM: Hypoplastic right. IMPRESSION: No evidence of aneurysm or significant stenosis.
== END | disposition home or self-care (01) ==
LOC: RADMRIMAIN 18:31
PROVIDERS: ATTEND Internal Medicine
DX: G44.52 New daily persistent headache (NDPH) (principal)
CPT/HCPCS: 70544

== ENCOUNTER → 2023-03-17 | Outpatient (CLI) | payer BC ==
--- NOTE | 2023-03-17 15:31 | US ---
EXAMINATION TYPE: US thyroid st tissue head/neck DATE OF EXAM: 03/17/2023 COMPARISON: NONE CLINICAL INDICATION: Female, 52 years old with history of E04.1 THY NOD; thyroid nodule seen on outsi de CT 1 week ago GLAND SIZE: Right Lobe: 5.8x1.5x1.5. cm Overall Parenchyma: homogeneous Left Lobe: 5.0x1.1x1.3 cm Overall Parenchyma: homogeneous Isthmus Thickness: 0.4 cm NODULES RIGHT: # of nodules measured on right: 1 1. 0.7 X 0.3 x 0.5 cm, upper lateral, TIRADS Score: 4 TIRADS Category 4: Composition: Solid or almost completely solid (2 points). Echogenicity: Hypoechoic (2 points). Shape: Wider than tall (0 points). Margin: Smooth (0 points). Echogenic foci: None or large comet-tail artifacts (0 points) Recommendation: If >1.5cm: FNA; If >1cm: Follow up at 1,2, 3,5 years Other smaller subcentimeter nodules seen throughout LEFT: # of nodules measured on left: 1 1. 2.2 X 1.3 x 1.5 cm, lower mid, TIRADS Score: 4 TIRADS Category 4: Composition: Solid or almost completely solid (2 points). Echogenicity: Hypoechoic (2 points). Shape: Wider than tall (0 points). Margin: Smooth (0 points). Echogenic foci: None or large comet-tail artifacts (0 points) Recommendation: If >1.5cm: FNA; If >1cm: Follow up at 1,2, 3,5 years ISTHMUS: # of nodules measured in the isthmus: 0 Bilateral neck scanned, no evidence of lymphadenopathy. IMPRESSION: Left inferior thyroid nodule that needs criteria for tissue sampling if not already performed.
== END | disposition home or self-care (01) ==
LOC: RADUSWWP 12:34
PROVIDERS: ATTEND Student in an Organized Health Care Education/Training Program
DX: E04.2 Nontoxic multinodular goiter (principal)
CPT/HCPCS: 76536

== ENCOUNTER 2023-04-10 11:35 | Day surgery (SDC) | payer BC ==
[2023-04-10] MEDS ORDERED: ALPRAZolam 0.5 MG TAB PO PRN (12:01)
[2023-04-10 13:08] VITALS: PULSE 86; RESP 16; TEMP 97.9
[2023-04-10 14:24] VITALS: BP 129/80
--- NOTE | 2023-04-11 08:27 | US ---
ULTRASOUND GUIDED FNA THYROID BIOPSY: CLINICAL HISTORY: Left thyroid nodule FINDINGS: The procedure was explained to the patient. The risks, complications, benefits and alternatives were discussed and any questions were answered. Informed consent was obtained. Patient was placed supin e on the ultrasound table and prepped and draped in the usual sterile fashion. Utilizing a 25 gauge needle, five passes were made into the requested left thyroid nodule. Patient was stable throughout the procedure. Pathology is pending. All elements of maximal barrier technique were utilized. IMPRESSION: 1. Successful ultrasound guided FNA thyroid biopsy.
== END 2023-04-10 14:06 | disposition home or self-care (01) ==
LOC: RADPROMAIN 11:35
PROVIDERS: ATTEND Student in an Organized Health Care Education/Training Program
DX: E04.1 Nontoxic single thyroid nodule (principal)
CPT/HCPCS: 10005; 88173; 88305

== ENCOUNTER → 2023-04-13 | Outpatient (CLI) | payer BC ==
--- NOTE | 2023-04-13 14:25 | US ---
EXAMINATION TYPE: US kidneys/renal and bladder DATE OF EXAM: 04/13/2023 COMPARISON: 10/01/2020 CLINICAL INDICATION: Female, 52 years old with history of N28.1 CYST OF KIDNEY, ACQUIRED; Follow up r enal cyst. No new symptoms. EXAM MEASUREMENTS: Right Kidney: 11.2 x 4.8 x 5.5 cm Left Kidney: 11.3 x 5.7 x 4.3 cm Right Kidney: There is a 3.4 x 3.7 x 3.5cm anechoic lesion seen in the superior/mid right kidney. Pre viously measured 3.1 x 2.5 x 3.0mm in 2020. Left Kidney: No hydronephrosis or masses seen as best visualized Bladder: wnl Bilateral Jets seen: Yes There is no evidence for hydronephrosis at this point in time. No nephrolithiasis is seen. No kirk s are identified. The urinary bladder is anechoic. Bilateral ureteral jets are seen. IMPRESSION: Simple cyst right kidney slightly larger in size.
== END | disposition home or self-care (01) ==
LOC: RADUSWWP 13:17
PROVIDERS: ATTEND Student in an Organized Health Care Education/Training Program
DX: N28.1 Cyst of kidney, acquired (principal)
CPT/HCPCS: 76770

== ENCOUNTER → 2023-05-05 | Outpatient (CLI) | payer OTHER ==
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
== END | disposition home or self-care (01) ==
LOC: RADMRIMAIN 18:45
PROVIDERS: ATTEND Orthopaedic Surgery
DX: M47.22 Other spondylosis with radiculopathy, cervical region (principal); M99.71 Connective tissue and disc stenosis of intervertebral foramina of cervical region; M50.10 Cervical disc disorder with radiculopathy, unspecified cervical region; M19.011 Primary osteoarthritis, right shoulder; M18.11 Unilateral primary osteoarthritis of first carpometacarpal joint, right hand; M17.12 Unilateral primary osteoarthritis, left knee; M62.552 Muscle wasting and atrophy, not elsewhere classified, left thigh; M19.071 Primary osteoarthritis, right ankle and foot; S90.31XD Contusion of right foot, subsequent encounter; S80.02XD Contusion of left knee, subsequent encounter; S83.412D Sprain of medial collateral ligament of left knee, subsequent encounter; G95.0 Syringomyelia and syringobulbia; R20.2 Paresthesia of skin; X58.XXXD Exposure to other specified factors, subsequent encounter
CPT/HCPCS: 72141

== ENCOUNTER → 2023-05-24 | Outpatient (CLI) | payer BC | END | disposition home or self-care (01) | LOC: LABWHC1 12:28 | PROVIDERS: ATTEND Internal Medicine Endocrinology, Diabetes & Metabolism | DX: E04.2 Nontoxic multinodular goiter (principal) | CPT/HCPCS: 36415; 84443 ==

== ENCOUNTER → 2023-06-28 | Outpatient (CLI) | payer OTHER ==
[2023-06-28 10:29] VITALS: BP 157/108; PULSE 76; RESP 16; TEMP 97.1
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
== END ==
LOC: PNWHC3 09:05
PROVIDERS: ATTEND Specialist
DX: M50.123 Cervical disc disorder at C6-C7 level with radiculopathy (principal); M19.90 Unspecified osteoarthritis, unspecified site; J45.909 Unspecified asthma, uncomplicated; K21.9 Gastro-esophageal reflux disease without esophagitis; I10 Essential (primary) hypertension; G43.909 Migraine, unspecified, not intractable, without status migrainosus; G44.89 Other headache syndrome; Z86.718 Personal history of other venous thrombosis and embolism; Z79.899 Other long term (current) drug therapy; Z88.8 Allergy status to other drugs, medicaments and biological substances; Z88.1 Allergy status to other antibiotic agents; Z88.5 Allergy status to narcotic agent; Z91.018 Allergy to other foods
CPT/HCPCS: 99211

== ENCOUNTER → 2023-07-19 | Outpatient (CLI) | payer BC ==
[2023-07-19 16:09] LABS: Appearance,Urine Clear (Clear); Bilirubin,Urine Negative (Negative); Blood,Urine Negative (Negative); Color,Urine Yellow (Yellow); Ketones,Urine Negative (Negative); Nitrite,Urine Negative (Negative); PH, Urine 5.5; Urobilinogen,Urine 0.2 E.U./DL
[2023-07-19 16:57] LABS: Basophils # (A) 0.16 X 10*3/uL (0.00-0.10); Basophils % (A) 1.1 %; Eosinophils # (A) 0.15 X 10*3/uL (0.04-0.35); HCT 45.5 % (37.2-46.3); HGB 15.2 g/dL (12.0-15.0); Lymphocytes # (A) 3.44 X 10*3/uL (0.90-5.00); Lymphocytes % (A) 22.8 %; MCH 29.3 pg (27.0-32.0); MCHC 33.4 g/dL (32.0-37.0); MCV 87.7 FL (80.0-97.0); Monocytes # (A) 1.18 X 10*3/uL (0.20-1.00); Monocytes % (A) 7.8 %; NRBC Per 100 WBC 0 X 10*3/uL (0.00-0.01); Neutrophils # (A) 10.06 X 10*3/uL (1.80-7.70); Neutrophils % (A) 66.4 %; Platelet Count 396 X 10*3/uL (140-440); RBC 5.19 X 10*6/uL (4.10-5.20); RDW 13.2 % (11.5-14.5); WBC 15.12 X 10*3/uL (4.50-10.00)
[2023-07-19 17:21] LABS: Calcium 9.9 mg/dL (8.7-10.3); Carbon Dioxide 26.5 mmol/L (21.6-31.8); Chloride 102 mmol/L (96-109); Glucose 97 mg/dL (70-110); Potassium 4.3 mmol/L (3.5-5.5); Sodium 140 mmol/L (135-145)
== END | disposition home or self-care (01) ==
LOC: LABPAT 12:06
PROVIDERS: ATTEND Urology
DX: Z01.812 Encounter for preprocedural laboratory examination (principal); N39.3 Stress incontinence (female) (male)
CPT/HCPCS: 36415; 80048; 81003; 85025; 87086

== ENCOUNTER 2023-07-26 07:29 | Observation (INO) | payer BC ==
[2023-07-21 09:32] VITALS: BMI 37.2
--- NOTE | 2023-07-25 17:35 | P.GSHP ---
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 She comes for a pubovaginal sling with cystoscopy. The risks and complications including urine retention, injury to adjacent organs and bladder, infection , bleeding, pain, dyspareunia retention and persistent incontinence have been explained understood and accepted. - Constitutional Constitutional: Denies chills, Denies fever - EENT Eyes: denies blurred vision, denies pain Ears, nose, mouth and throat: Denies headache, Denies sore throat - Cardiovascular Cardiovascular: Denies chest pain, Denies shortness of breath - Respiratory Respiratory: Denies cough, Denies 7 - Gastrointestinal Gastrointestinal: Denies abdominal pain, Denies diarrhea, Denies nausea, Denies vomiting - Genitourinary (Female) Genitourinary: Denies dysuria, Denies hematuria - Genitourinary (Male) Genitourinary: Denies dysuria, Denies hematuria - Musculoskeletal Musculoskeletal: Denies myalgias - Integumentary Integumentary: Denies pruritus, Denies rash - Neurological Neurological: Denies numbness, Denies weakness - Psychiatric Psychiatric: Denies anxiety, Denies depression - Endocrine Endocrine: Denies fatigue, Denies weight change Past Medical History Past Medical History: Asthma, Deep Vein Thrombosis (DVT), GERD/Reflux, Hypertension, Rheumatoid Arthritis (RA) Additional Past Medical History / Comment(s): migraines, "high heart rate", hx dvt rt arm, "weak bladder" History of Any Multi-Drug Resistant Organisms: None Reported Past Surgical History: Appendectomy, Hysterectomy, Orthopedic Surgery, Tubal Ligation Additional Past Surgical History / Comment(s): left knee arthroscopy x 2, left hand surgery-trigger finger, christine-tonsillar abscess surgery. surgery to remove ovarian cyst, Past Anesthesia/Blood Transfusion Reactions: Previous Problems w/ Anesthesia, Family History of Problems w/ Anesthesia, Motion Sickness, Postoperative Nausea & Vomiting (PONV) Additional Past Anesthesia/Blood Transfusion Reaction / Comment(s): "relaxing medication makes me more anxious". patients son had difficulty waking up-"to much anesthesia" Smoking Status: Never smoker - Past Family History Father Additional Family Medical History / Comment(s): skin cancer Mother Family Medical History: No Reported History Medications and Allergies Home Medications Medication Instructions Recorded Confirmed Type Multivitamins, Thera [Multivitamin 1 tab PO DAILY 02/24/16 07/21/23 History (formulary)] Biotin [Biotin Disolve] 5,000 mcg PO DAILY 12/03/18 07/21/23 History Ascorbic Acid [Vitamin C] 1,000 mg PO DAILY 03/09/20 07/21/23 History Cholecalciferol [Vitamin D3 (25 1,000 unit PO DAILY 03/09/20 07/21/23 History Mcg = 1000 Iu)] Albuterol Inhaler [Ventolin Hfa 1 - 2 puff INHALATION RT-Q6H PRN 03/14/20 07/21/23 History Inhaler] Pantoprazole Sodium 20 mg PO BID 09/29/21 07/21/23 History Albuterol Nebulized [Ventolin 1.25 mg INHALATION TID PRN 03/14/22 07/21/23 History Nebulized (Accuneb)] Metoprolol Tartrate [Lopressor] 50 mg PO BID 03/14/22 07/21/23 History Turmeric Root Extract [Turmeric] 1,053 mg PO DAILY 03/14/22 07/21/23 History Zinc(Dose Unknown) 1 tab PO DAILY 03/14/22 07/21/23 History estradioL [estradioL (Once Weekly) 1 patch TRANSDERM WEEKLY 03/14/22 07/21/23 History 0.025 mg Patch] Acetaminophen [Tylenol Extra 1,000 mg PO Q8HR PRN 07/21/23 07/21/23 History Strength] Fluticasone Propion/Salmeterol 1 inhalation PO BID 07/21/23 07/21/23 History [Advair 250-50 Diskus] Allergies Allergy/AdvReac Type Severity Reaction Status Date / Time cefazolin [From Kefzol] Allergy Rash/Hives Verified 07/21/23 08:46 clarithromycin [From Biaxin] Allergy Rash/Hives Verified 07/21/23 08:46 fentanyl Allergy Rash/Hives Verified 07/21/23 08:46 pear Allergy Anaphylaxis Verified 07/21/23 08:46 Sulfa (Sulfonamide Allergy Rash/Hives Verified 07/21/23 08:46 Antibiotics) Opioids - Morphine Analogues AdvReac Rash/Hives Verified 07/21/23 08:46 Surgical - Exam - General well developed, well nourished, no distress - Eyes normal ocular movement, no icteric - ENT no hearing loss, no congestion - Neck no masses, trachea midline - Respiratory normal respiratory effort, clear to auscultation - Abdomen Abdomen: soft, non tender, no guarding, no rigid, no rebound - Genitourinary hypermobile urethra with olga - Integumentary no rash, no abnormal pigmentation - Neurologic no disoriented, no combative - Psychiatric oriented to time, oriented to person, oriented to place, speech is normal, memory intact Assessment and Plan Assessment: Impression: 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
[~2023-07-26 07:29] MED LIST changes: -ALBUTEROL NEB (CONC) 2.5 MG/0.5 ML INHALATION ONE; -ATROPINE SULFATE 0.4 MG/ML 1 ML VIAL IM ONE; -LACTATED RINGERS 1,000 ML IV SCH; +LIDOCAINE 1% (10MG/ML) FOR IV START INTRADERMA PRN; -LIDOCAINE 2% (PF) 20 MG/ML 5 ML VIAL INHALATION ONE; -LIDOCAINE VISCOUS 300 MG/15 ML CUP MUCOUS MEM ONE
[2023-07-26] MEDS: SCOPOLAMINE 1 MG/72 HR PATCH TRANSDERM ONE (09:09)
[2023-07-26] MEDS: LACTATED RINGERS 1,000 ML IV SCH (09:12)
[2023-07-26] MEDS: HYDROCORTISONE SUCCINATE 100 MG/2 ML VIAL IVP ONE (09:20)
[2023-07-26] MEDS: DEXAMETHASONE SOD PHOSPHATE 4 MG/ML 1 ML VIAL IV ONE (09:20)
[2023-07-26] MEDS: ONDANSETRON 4 MG/2 ML VIAL IVP ONE (09:20)
[2023-07-26] MEDS: MIDAZOLAM 2 MG/2 ML VIAL IV PRN (09:31)
[2023-07-26] MEDS ORDERED: fentaNYL (PF) 50 MCG/ML 2 ML AMP ONE (09:50)
[2023-07-26] MEDS ORDERED: LIDOCAINE 1% INJ 10MG/ML (20 ML MDV) ONE (09:50)
[2023-07-26] MEDS ORDERED: KETOROLAC 15 MG/ML 1 ML VIAL ONE (09:50)
[2023-07-26] MEDS ORDERED: PROPOFOL 10 MG/ML 20 ML VIAL IV ONE (09:50)
[2023-07-26] MEDS: AMPICILLIN 1,000 MG in SODIUM CHLORIDE 0.9% 50 ML IVPB PRN (09:55)
[2023-07-26] MEDS: GENTAMICIN 110 MG in SODIUM CHLORIDE 0.9% 100 ML IVPB PRN (10:10)
[2023-07-26] MEDS: VASOPRESSIN 20 UNIT/ML 1 ML VIAL SQ ONE (10:15)
[2023-07-26] MEDS ORDERED: ACETAMINOPHEN TAB 500 MG TAB PO PRN (10:37)
[2023-07-26] MEDS ORDERED: ALBUTEROL NEBULIZED 1.25 MG/3 ML INHALATION PRN (10:37)
[2023-07-26] MEDS ORDERED: ONDANSETRON 4 MG/2 ML VIAL IVP PRN (10:38)
--- NOTE | 2023-07-26 10:44 | P.OP ---
Date of Procedure: 07/26/23 Preoperative Diagnosis: Stress urinary incontinence Postoperative Diagnosis: Same Procedure(s) Performed: Cystoscopy with pubovaginal sling (lynx) bladder neck suspension Anesthesia: KARTHIK Surgeon: Noam Kam Estimated Blood Loss (ml): 100 Pathology: none sent Condition: stable Disposition: PACU Indications for Procedure: Patient is 52. She has stress incontinence documented on history physical examination urodynamics. She has type 2-3 stress incontinence. She comes for a pubovaginal sling with Lynx graft. The risks and complications including infection bleeding pain erosion failure urine retention mesh controversy dyspareunia been explained and understood and accepted Description of Procedure: Patient brought operating suite. She's placed on the operating table in a supine position. She is given a general anesthetic. She's placed in lithotomy position with a sterile prep and drape. A Hendrix catheters introduced sterilely. The labia are sewn laterally with 2-0 silk. A vaginal speculum was placed. Anterior vaginal mucosa was elevated off the submucosa with 10 mL of a mixture of 20 g of Pitressin and 200 mL of saline. Suburethral midline incision is made. I dissect lateral the neck bilaterally. I then make 2 incisions at the corners of the pubis suprapubically. I then passed the introducers retropubically and into the vaginal space bilaterally. I then perform cystoscopy with a 21-Armenian sheath to make sure there is no injury to the bladder and there is none. The bladder is otherwise normal. Reintroduced the Hendrix. I then attached the graft and pull it back suprapubically. Graft lay nicely at the bladder neck. The vaginal mucosa was closed with 2-0 Vicryl. The suprapubic incisions are closed with 4-0 Vicryl. Vaginal packings placed. The patient is awakened and returned recovery room good condition. Blood loss is approximately 100 mL. She'll be placed in the hospital postoperatively. The urine is clear upon recovery.
[2023-07-26] MEDS: HYDROmorphone 0.5 MG/0.5 ML SYRINGE IVP PRN (11:11)
[2023-07-26] MEDS: DEXTROSE 5%-0.45% NACL 1,000 ML IV SCH (12:17)
[2023-07-26] MEDS: KETOROLAC 15 MG/ML 1 ML VIAL IVP PRN (12:17)
[2023-07-26] MEDS: SYMBICORT 80-4.5 MCG INHALER INHALATION SCH (18:27)
[2023-07-26] MEDS: PANTOPRAZOLE 40 MG TABLET PO SCH (21:33)
[2023-07-26] MEDS: METOPROLOL TARTRATE 50 MG TAB PO SCH (21:34)
[2023-07-27 08:41] VITALS: BP 132/85; PULSE 94; RESP 17; TEMP 97.8
--- NOTE | 2023-07-27 14:16 | P.DS ---
Providers Date of admission: 07/26/23 07:30 Expected date of discharge: 07/27/23 Attending physician: Noam Kam Primary care physician: Manuel Polo MD Hospital Course: On the day of admission, the patient underwent a Lynx pubovaginal sling. The perioperative course was unremarkable. The patient remained afebrile with stable vital signs. On the first postoperative day, Hendrix catheter and vaginal packing were removed. The patient was able to void without difficulty. Her only voiding complaint was mild hesitancy. She was verified to be emptying her bladder completely. She reported minimal spotting. Incisions were clean, dry, and intact. Mild ecchymosis was noted adjacent to the right suprapubic incision. Procedures: Lynx Pubovaginal Sling on 07/26/2023. Patient Condition at Discharge: Good Plan - Discharge Summary Discharge Rx Participant: No New Discharge Prescriptions: New Ketorolac [Toradol] 10 mg PO Q6HR PRN #10 tab PRN Reason: Pain Levofloxacin [Levaquin] 500 mg PO DAILY 1 Days #3 tab No Action Multivitamins, Thera [Multivitamin (formulary)] 1 tab PO DAILY Biotin [Biotin Disolve] 5,000 mcg PO DAILY Cholecalciferol [Vitamin D3 (25 Mcg = 1000 Iu)] 1,000 unit PO DAILY Ascorbic Acid [Vitamin C] 1,000 mg PO DAILY Albuterol Inhaler [Ventolin Hfa Inhaler] 1 - 2 puff INHALATION RT-Q6H PRN PRN Reason: Shortness Of Breath Albuterol Nebulized [Ventolin Nebulized (Accuneb)] 1.25 mg INHALATION TID PRN PRN Reason: sob Turmeric Root Extract [Turmeric] 1,053 mg PO DAILY estradioL [estradioL (Once Weekly) 0.025 mg Patch] 1 patch TRANSDERM WEEKLY Metoprolol Tartrate [Lopressor] 50 mg PO BID Zinc(Dose Unknown) 1 tab PO DAILY Pantoprazole Sodium 20 mg PO BID Fluticasone Propion/Salmeterol [Advair 250-50 Diskus] 1 inhalation PO BID Acetaminophen [Tylenol Extra Strength] 1,000 mg PO Q8HR PRN PRN Reason: Pain Discharge Medication List Multivitamins, Thera [Multivitamin (formulary)] 1 tab PO DAILY 02/24/16 [History] Biotin [Biotin Disolve] 5,000 mcg PO DAILY 12/03/18 [History] Ascorbic Acid [Vitamin C] 1,000 mg PO DAILY 03/09/20 [History] Cholecalciferol [Vitamin D3 (25 Mcg = 1000 Iu)] 1,000 unit PO DAILY 03/09/20 [History] Albuterol Inhaler [Ventolin Hfa Inhaler] 1 - 2 puff INHALATION RT-Q6H PRN 03/14/20 [History] Pantoprazole Sodium 20 mg PO BID 09/29/21 [History] Albuterol Nebulized [Ventolin Nebulized (Accuneb)] 1.25 mg INHALATION TID PRN 03/14/22 [History] Metoprolol Tartrate [Lopressor] 50 mg PO BID 03/14/22 [History] Turmeric Root Extract [Turmeric] 1,053 mg PO DAILY 03/14/22 [History] Zinc(Dose Unknown) 1 tab PO DAILY 03/14/22 [History] estradioL [estradioL (Once Weekly) 0.025 mg Patch] 1 patch TRANSDERM WEEKLY 03/14/22 [History] Acetaminophen [Tylenol Extra Strength] 1,000 mg PO Q8HR PRN 07/21/23 [History] Fluticasone Propion/Salmeterol [Advair 250-50 Diskus] 1 inhalation PO BID 07/21/23 [History] Ketorolac [Toradol] 10 mg PO Q6HR PRN #10 tab 07/27/23 [Rx] Levofloxacin [Levaquin] 500 mg PO DAILY 1 Days #3 tab 07/27/23 [Rx] Follow up Appointment(s)/Referral(s): Noam Kam MD [STAFF PHYSICIAN] - 1 Week Activity/Diet/Wound Care/Special Instructions: Diet as tolerated. Drink plenty of fluids. Okay to shower. No strenuous activity. Avoid sexual activity.
== END 2023-07-27 12:17 ==
LOC: OR 07:29 → 4FBP 07:30
PROVIDERS: ADMIT Urology; ATTEND Urology
DX: N39.3 Stress incontinence (female) (male) (principal); J45.909 Unspecified asthma, uncomplicated; I10 Essential (primary) hypertension; M06.9 Rheumatoid arthritis, unspecified; Z79.899 Other long term (current) drug therapy; Z80.8 Family history of malignant neoplasm of other organs or systems; Z86.718 Personal history of other venous thrombosis and embolism; Z90.710 Acquired absence of both cervix and uterus
CPT/HCPCS: 96374; 96375; 94640 ×2; 57288; G0378 ×2; C1771; J2250; J1100; J1720; J2405; J1580; J0290; J1885 ×2; J1170

== ENCOUNTER → 2023-08-10 | Outpatient (CLI) | payer BC ==
--- NOTE | 2023-08-14 23:27 | MM ---
Reason for Exam: Screening (asymptomatic). Last mammogram was performed 2 year(s) and 6 month(s) ago. Patient History: Menarche at age 17. First Full-Term at age 21. Left ovary removed at age 47. Right ovary removed at age 47. Hysterectomy at age 47. Maternal grandmother had breast cancer, age 60. Risk Values: Racheal 5 year model risk: 0.9%. NCI Lifetime model risk: 7.1%. Prior Study Comparison: 07/11/2014 Bilateral Screening Mammogram, [facility]. 07/17/2014 Left Diagnostic Mammogram, [facility]. 01/28/2016 Bilateral Diagnostic Mammogram, [facility]. 02/25/2021 Bilateral Screening Mammogram, [facility]. Tissue Density: The breasts are heterogeneously dense, which may obscure small masses. Findings: Pattern is asymmetric with greater parenchymal tissue on the left compared to the right. The pattern is stable from comparison. Benign calcifications are present bilaterally. There is a rounded density within the mid right breast on the craniocaudal projection measuring 1.0 cm located 8 cm from the nipple. This has enlarged from comparison. Additional chronic appearing nodularity is present within the left breast. Right breast:No suspicious groups of microcalcifications, spiculated or lobular masses, architectural distortion or other secondary signs of malignancy are mammographically apparent. Overall Assessment: Incomplete: need additional imaging evaluation, BI-RAD 0 Management: Diagnostic Mammogram of the left breast. A negative mammogram report should not preclude additional follow up of suspicious palpable abnormalities. Patient should continue monthly self breast exam. A clinical breast exam by your physician is recommended on an annual basis and results should be correlated with mammographic findings. Electronically signed and approved by: Liam Moran D.O. Radiologis
== END | disposition home or self-care (01) ==
LOC: RADMAMWWP 11:55
PROVIDERS: ATTEND Student in an Organized Health Care Education/Training Program
DX: Z12.31 Encounter for screening mammogram for malignant neoplasm of breast (principal); Z80.3 Family history of malignant neoplasm of breast
CPT/HCPCS: 77067

== ENCOUNTER → 2023-08-16 | Outpatient (CLI) | payer BC ==
--- NOTE | 2023-08-16 12:58 | MM ---
Reason for Exam: Additional evaluation requested from abnormal screening. Last screening mammogram was performed less than 1 month ago. Patient History: Menarche at age 17. First Full-Term at age 21. Left ovary removed at age 47. Right ovary removed at age 47. Hysterectomy at age 47. Maternal grandmother had breast cancer, age 60. Risk Values: Racheal 5 year model risk: 0.9%. NCI Lifetime model risk: 7.1%. Prior Study Comparison: 01/28/2016 Bilateral Diagnostic Mammogram, [facility]. 02/25/2021 Bilateral Screening Mammogram, [facility]. 08/10/2023 Bilateral MG screening mammo w CAD, [facility]. Tissue Density: Left: The breasts are heterogeneously dense, which may obscure small masses. Findings: Analyzed By CAD. Pattern is asymmetrically greater parenchymal tissue on the left. The right. The parenchymal pattern appears to disperse on compression. Patient reports may be some increase in retraction of the left nipple. Appear to be small rounded densities at the area of previous increased density. Additional evaluation with ultrasound is recommended. Overall Assessment: Incomplete: need additional imaging evaluation, BI-RAD 0 Management: Diagnostic Breast Ultrasound of the left breast. A negative mammogram report should not preclude additional follow up of suspicious palpable abnormalities. Patient should continue monthly self breast exam. A clinical breast exam by your physician is recommended on an annual basis and results should be correlated with mammographic findings. Note on Racheal scores and lifetime risk: 1. A Racheal score greater than 3% is considered moderate risk. If this is the case, consider specialist referral to assess eligibility for a risk reducing agent. 2. If overall lifetime risk for the development of breast cancer is 20% or higher, the patient may qualify for future screening with alternating mammogram and breast MRI. Electronically signed and approved by: Liam Moran D.O. Radiologis
--- NOTE | 2023-08-16 14:32 | USB ---
Reason for Exam: Additional evaluation requested from prior study. Patient History: Menarche at age 17. First Full-Term at age 21. Left ovary removed at age 47. Right ovary removed at age 47. Hysterectomy at age 47. Maternal grandmother had breast cancer, age 60. Risk Values: Racheal 5 year model risk: 0.9%. NCI Lifetime model risk: 7.1%. Technique: Method: Whole Breast Handheld. Prior Study Comparison: 07/17/2014 Left Diagnostic Ultrasound, [facility]. 01/28/2016 Bilateral Diagnostic Mammogram, [facility]. 01/28/2016 Left Diagnostic Ultrasound, [facility]. 02/25/2021 Bilateral Screening Mammogram, [facility]. 08/10/2023 Bilateral MG screening mammo w CAD, [facility]. Findings: The whole breast of the left breast, the axilla of the left breast and the retroareolar of the left breast were scanned. There are multiple cysts within the breast. A group is at the 12:00 position 7 cm from the nipple. A nearby duct cyst is also present measuring 1.0 x 0.3 x 0.4 cm. Note is made of an additional small cysts measuring 0.3 cm at the 10:00 position 9 cm nipple. This has good through transmission. No suspicious solid lesions evident. Overall Assessment: Benign, BI-RAD 2 Management: Screening Mammogram of both breasts in 1 year. A clinical breast exam by your physician is recommended on an annual basis and results should be correlated with mammographic findings. This exam should not preclude additional follow-up of suspicious palpable abnormalities. Results were given to the patient verbally at the time of exam. Electronically signed and approved by: Liam Moran D.O. Radiologis
== END | disposition home or self-care (01) ==
LOC: RADMAMWWP 12:21
PROVIDERS: ATTEND Student in an Organized Health Care Education/Training Program
DX: R92.332 Mammographic heterogeneous density, left breast (principal); Z80.3 Family history of malignant neoplasm of breast
CPT/HCPCS: 77061; 77065

== ENCOUNTER 2023-08-23 08:59 | Emergency (ER) | payer BC ==
[2023-08-23] MEDS: TETRACAINE 0.5% OPHTH (PF) DROPS 4 ML BTL RIGHT EYE STA (10:01)
[2023-08-23] MEDS: methylPREDNISolone SOD SUCCI 125 MG/2 ML VIAL IM ONE (10:01)
[2023-08-23] MEDS: FLUORESCEIN STRIPS 1 MG STRIP RIGHT EYE ONE (10:02)
--- NOTE | 2023-08-23 10:06 | XR ---
EXAMINATION TYPE: XR chest 2V DATE OF EXAM: 08/23/2023 COMPARISON: 04/18/2022 HISTORY: 52-year-old female persistent cough TECHNIQUE: PA and lateral views FINDINGS: Heart normal size. Aorta and pulmonary vasculature within normal limits. Mild interstitial prominence and central peribronchial cuffing. No consolidation or pleural effusion. IMPRESSION: Some findings which can be seen with bronchitis or asthma. No focal infiltrate seen.
[2023-08-23 10:18] VITALS: RESP 18; TEMP 98.1
--- NOTE | 2023-08-23 11:01 | ED ---
General Adult HPI - General Chief complaint: Eye Problems Stated complaint: R Eye Injury Time Seen by Provider: 08/23/23 09:20 Source: patient, RN notes reviewed, old records reviewed Mode of arrival: ambulatory Limitations: no limitations - History of Present Illness Initial comments: Patient is a 52-year-old female who presents emergency department complaining of 2 primary complaints. Has a history of asthma and has had worsening cough, congestion for the last week. Previously was on steroids as well as completed a course of azithromycin. Is still symptomatic over 1 week later. She has been fighting this for multiple weeks. She is also complaining of being scratched in her right eye by her cat. No acute cardiopulmonary process at this time. Patient believes she is updated tetanus. Denies any blurry vision. Wears glasses at baseline. Presents for further evaluation. - Related Data Home Medications Medication Instructions Recorded Confirmed Multivitamins, Thera [Multivitamin 1 tab PO DAILY 02/24/16 07/21/23 (formulary)] Biotin [Biotin Disolve] 5,000 mcg PO DAILY 12/03/18 07/21/23 Ascorbic Acid [Vitamin C] 1,000 mg PO DAILY 03/09/20 07/21/23 Cholecalciferol [Vitamin D3 (25 1,000 unit PO DAILY 03/09/20 07/21/23 Mcg = 1000 Iu)] Albuterol Inhaler [Ventolin Hfa 1 - 2 puff INHALATION RT-Q6H PRN 03/14/20 07/21/23 Inhaler] Pantoprazole Sodium 20 mg PO BID 09/29/21 07/21/23 Albuterol Nebulized [Ventolin 1.25 mg INHALATION TID PRN 03/14/22 07/21/23 Nebulized (Accuneb)] Metoprolol Tartrate [Lopressor] 50 mg PO BID 03/14/22 07/21/23 Turmeric Root Extract [Turmeric] 1,053 mg PO DAILY 03/14/22 07/21/23 Zinc(Dose Unknown) 1 tab PO DAILY 03/14/22 07/21/23 estradioL [estradioL (Once Weekly) 1 patch TRANSDERM WEEKLY 03/14/22 07/26/23 0.025 mg Patch] Acetaminophen [Tylenol Extra 1,000 mg PO Q8HR PRN 07/21/23 07/26/23 Strength] Fluticasone Propion/Salmeterol 1 inhalation PO BID 07/21/23 07/26/23 [Advair 250-50 Diskus] Previous Rx's Medication Instructions Recorded Ketorolac [Toradol] 10 mg PO Q6HR PRN #10 tab 07/27/23 Levofloxacin [Levaquin] 500 mg PO DAILY 1 Days #3 tab 07/27/23 Doxycycline Hyclate 100 mg PO BID 7 Days #14 cap 08/23/23 Moxifloxacin [Vigamox 0.5%] 2 drop RIGHT EYE QID 10 Days #3 ml 08/23/23 predniSONE [Deltasone] 40 mg PO DAILY 5 Days #10 tab 08/23/23 Allergies Allergy/AdvReac Type Severity Reaction Status Date / Time cefazolin [From Kefzol] Allergy Rash/Hives Verified 08/23/23 09:03 clarithromycin [From Biaxin] Allergy Rash/Hives Verified 08/23/23 09:03 fentanyl Allergy Rash/Hives Verified 08/23/23 09:03 pear Allergy Anaphylaxis Verified 08/23/23 09:03 Sulfa (Sulfonamide Allergy Rash/Hives Verified 08/23/23 09:03 Antibiotics) Opioids - Morphine Analogues AdvReac Rash/Hives Verified 08/23/23 09:03 Review of Systems ROS Statement: Those systems with pertinent positive or pertinent negative responses have been documented in the HPI. Review of Systems: CONST: Denies fever EYES: Endorses eye pain ENT: Endorses is cough, congestion C/V: Denies Chest pain RESP: Denies shortness of breath GI: Denies abdominal pain : Denies dysuria SKIN: Denies rash. MSK: Denies joint pain. NEURO: Denies headache ROS Other: All systems not noted in ROS Statement are negative. Past Medical History Past Medical History: Asthma, Deep Vein Thrombosis (DVT), GERD/Reflux, Hypertension, Rheumatoid Arthritis (RA) Additional Past Medical History / Comment(s): migraines, "high heart rate", hx dvt rt arm, "weak bladder", "cyst inside spinal cord", post-concussion syndrome History of Any Multi-Drug Resistant Organisms: None Reported Past Surgical History: Appendectomy, Hysterectomy, Orthopedic Surgery, Tubal Ligation Additional Past Surgical History / Comment(s): left knee arthroscopy x 2, left hand surgery-trigger finger, christine-tonsillar abscess surgery. surgery to remove ovarian cyst Past Anesthesia/Blood Transfusion Reactions: Previous Problems w/ Anesthesia, Family History of Problems w/ Anesthesia, Motion Sickness, Postoperative Nausea & Vomiting (PONV) Additional Past Anesthesia/Blood Transfusion Reaction / Comment(s): "relaxing medication makes me more anxious". patients son had difficulty waking up-"to much anesthesia" Past Psychological History: No Psychological Hx Reported Smoking Status: Never smoker Past Alcohol Use History: None Reported Past Drug Use History: Marijuana - Past Family History Father Additional Family Medical History / Comment(s): skin cancer Mother Family Medical History: No Reported History General Exam - General Exam Comments Initial Comments: General: Appears in no acute distress. HEAD: Normal with no signs of head trauma. EYES: PERRLA, EOMI, conjunctiva normal, no discharge. Patient has a corneal abrasion on exam in the 9 o'clock position of the right eye. Visual acuity is 20/30 in bilateral eyes. +3 mm and equal bilaterally. ENT: Hearing grossly intact, normal oropharynx. RESPIRATORY: Mild wheezes with coarse breath sounds bilaterally. No increased work of breathing. No hypoxia. C/V: Regular rate and rhythm. S1 and S2 auscultated ABD: Abd is soft, nontender, nondistended EXT: Normal range of motion, no obvious deformity SKIN: No rashes or lesions observed on exposed skin. NEURO: Alert and oriented x 4. Limitations: no limitations Course Vital Signs 08/23/23 08/23/23 08/23/23 09:01 09:18 10:10 Temperature 98.1 F 98 F Pulse Rate 88 88 Respiratory 18 18 18 Rate Blood Pressure 138/85 139/87 O2 Sat by Pulse 96 96 Oximetry 08/23/23 08/23/23 08/23/23 11:10 11:19 11:24 Temperature 98.1 F Pulse Rate 83 88 91 Respiratory 18 18 18 Rate Blood Pressure 137/81 O2 Sat by Pulse 97 Oximetry Medical Decision Making - Medical Decision Making Was pt. sent in by a medical professional or institution (, [facility], OPERATIONAL RISK ANALYST, urgent care, hospital, or assisted...) When possible be specific @ -No Did you speak to anyone other than the patient for history (EMS, parent, family, police, friend...)? What history was obtained from this source @ -No Did you review nursing and triage notes (agree or disagree)? Why? @ -I reviewed and agree with nursing and triage notes Were old charts reviewed (outside hosp., previous admission, EMS record, old EKG, old radiological studies, urgent care reports/EKG's, assisted records)? Report findings @ -Old charts reviewed Differential Diagnosis (chest pain, altered mental status, abdominal pain women, abdominal pain men, vaginal bleeding, weakness, fever, dyspnea, syncope, headache, dizziness, GI bleed, back pain, seizure, CVA, palpatations, mental health, musculoskeletal)? @ -COVID, flu, RSV, pneumonia, asthma, bronchitis, corneal abrasion. This list is not all inclusive. EKG interpreted by me (3pts min.). @ -None none X-rays interpreted by me (1pt min.). @ -Chest x-ray consistent with bronchitis CT interpreted by me (1pt min.). @ -None done U/S interpreted by me (1pt. min.). @ -None done What testing was considered but not performed or refused? (CT, X-rays, U/S, labs)? Why? @ -None What meds were considered but not given or refused? Why? @ -None Did you discuss the management of the patient with other professionals (professionals i.e. , PA, OPERATIONAL RISK ANALYST, lab, RT, psych nurse, social media assistant, fire assistant, teacher, surface to air weapons officer, child support case officer)? Give summary @ -No Was smoking cessation discussed for >3mins.? @ -No Was critical care preformed (if so, how long)? @ -No Were there social determinants of health that impacted care today? How? (Homelessness, low income, unemployed, alcoholism, drug addiction, transportation, low edu. Level, literacy, decrease access to med. care, senior living, rehab)? @ -No Was there de-escalation of care discussed even if they declined (Discuss DNR or withdrawal of care, Hospice)? DNR status @ -No What co-morbidities impacted this encounter? (DM, HTN, Smoking, COPD, CAD, Cancer, CVA, ARF, Chemo, Hep., AIDS, mental health diagnosis, sleep apnea, morbid obesity)? @ -Asthma Was patient admitted / discharged? Hospital course, mention meds given and route, prescriptions, significant lab abnormalities, going to OR and other pertinent info. @ -Based on the patient's presentation and physical exam, presents emergency department complaining of what sounds like bronchitis or asthma exacerbation as well as a suspected corneal abrasion from a cat scratch. Vital signs within acceptable limits. We will obtain viral swabs, chest x-ray as well as evaluate the eye. Patient symptomatically treated with DuoNeb, IM injection of Solu-Medrol, and tetracaine was used to numb the eye for evaluation. Acuity is within acceptable limits. Fluorescein staining shows a corneal abrasion in the 9 o'clock po sition. Ocular exam otherwise within acceptable limits. Chest x-ray reveals findings consistent with bronchitis. I discussed results with the patient. She will be started on moxifloxacin drops for her corneal abrasion as well as prednisone and doxycycline for home for asthma as well as tracheobronchitis. Patient in agreement this plan. She already has inhalers and breathing treatments at home. Patient will be discharged home at this time. She was in agreement this plan. I will provide the patient with a prescription for moxifloxacin, prednisone, doxycycline. I instructed the patient to follow up with their PCP in the next 1- 3 days.. I explained that the patient should return to the emergency department if they experience any worsening symptoms. Strict return precautions were disc ussed with the patient. The patient expressed understanding of these instructions. I answered all questions that the patient had. The patient was discharged home in good condition with their prescriptions and follow up information. Undiagnosed new problem with uncertain prognosis? @ -No Drug Therapy requiring intensive monitoring for toxicity (Heparin, Nitro, Insulin, Cardizem)? @ -No Were any procedures done? @ -No Diagnosis/symptom? @ -Asthma, tracheobronchitis, corneal abrasion Acute, or Chronic, or Acute on Chronic? @ -Acute Uncomplicated (without systemic symptoms) or Complicated (systemic symptoms)? @ -Complicated Side effects of treatment? @ -No Exacerbation, Progression, or Severe Exacerbation? @ -No Poses a threat to life or bodily function? How? (Chest pain, USA, MA, pneumonia, PE, COPD, DKA, ARF, appy, cholecystitis, CVA, Diverticulitis, Homicidal, Suicidal, threat to staff... and all critical care pts) @ -Unlikely - Lab Data Lab Results 08/23/23 Range/Units 09:36 Influenza Type A (PCR) Not Detected (Not Detectd) Influenza Type B (PCR) Not Detected (Not Detectd) RSV (PCR) Not Detected (Not Detectd) SARS-CoV-2 (PCR) Not Detected (Not Detectd) Disposition Clinical Impression: Corneal abrasion, right, Tracheobronchitis, Asthma Disposition: HOME SELF-CARE Condition: Good Instructions (If sedation given, give patient instructions): Asthma (ED), Corneal Abrasion (ED), Acute Bronchitis (ED) Prescriptions: predniSONE [Deltasone] 40 mg PO DAILY 5 Days #10 tab Doxycycline Hyclate 100 mg PO BID 7 Days #14 cap Moxifloxacin [Vigamox 0.5%] 2 drop RIGHT EYE QID 10 Days #3 ml Is patient prescribed a controlled substance at d/c from ED?: No Referrals: Manuel Polo MD [Primary Care Provider] - 1-2 days Time of Disposition: 11:00
[2023-08-23] MEDS: DOXYCYCLINE 100 MG CAP PO STA (11:09)
[2023-08-23] MEDS: IPRATROPIUM-ALBUTEROL 3 ML NEB INHALATION STA (11:10)
[2023-08-23] MEDS: MOXIFLOXACIN HCL 0.5% DROPS 3 ML BTL RIGHT EYE ONE (11:22)
[2023-08-23 11:44] VITALS: BP 137/81; PULSE 91
== END 2023-08-23 11:33 | disposition home or self-care (01) ==
LOC: SUPCPDRO 08:59 → EC 08:59
DX: S05.01XA Injury of conjunctiva and corneal abrasion without foreign body, right eye, initial encounter (principal); J45.909 Unspecified asthma, uncomplicated; Z88.1 Allergy status to other antibiotic agents; Z88.2 Allergy status to sulfonamides; Z88.5 Allergy status to narcotic agent; Z88.8 Allergy status to other drugs, medicaments and biological substances; Z91.018 Allergy to other foods; Z79.51 Long term (current) use of inhaled steroids; Z79.899 Other long term (current) drug therapy; W55.03XA Scratched by cat, initial encounter
CPT/HCPCS: 94640; 87636; 71046; 99283; 96372; J2919

== ENCOUNTER → 2024-01-26 | Outpatient (CLI) | payer OTHER | END | disposition home or self-care (01) | LOC: LABWHC1 11:39 | PROVIDERS: ATTEND Physical Medicine & Rehabilitation | DX: S06.9XAA Unspecified intracranial injury with loss of consciousness status unknown, initial encounter (principal); F07.81 Postconcussional syndrome; R51.9 Headache, unspecified; X58.XXXA Exposure to other specified factors, initial encounter | CPT/HCPCS: 36415; 93005 ==

== ENCOUNTER → 2024-08-16 | Outpatient (CLI) | payer BC ==
--- NOTE | 2024-08-16 10:39 | MM ---
Reason for Exam: Screening (asymptomatic). Last screening mammogram was performed 12 month(s) ago. Patient History: Menarche at age 17. First Full-Term at age 21. Left ovary removed at age 47. Right ovary removed at age 47. Hysterectomy at age 47. Postmenopausal. Maternal grandmother had breast cancer, age 60. Risk Values: Racheal 5 year model risk: 0.9%. NCI Lifetime model risk: 7.0%. Prior Study Comparison: 02/25/2021 Bilateral Screening Mammogram, [facility]. 08/10/2023 Bilateral MG screening mammo w CAD, [facility]. 08/16/2023 Left MG 3D work up w/cad LT, [facility]. Tissue Density: The breasts are heterogeneously dense, which may obscure small masses. Findings: Analyzed By CAD. There is no suspicious group of microcalcifications or new suspicious mass in either breast. Benign-appearing calcifications. Overall Assessment: Benign, BI-RAD 2 Management: Screening Mammogram of both breasts in 1 year. . Patient should continue monthly self-breast exams. A clinical breast exam by your physician is recommended on an annual basis. This exam should not preclude additional follow-up of suspicious palpable abnormalities. Note on Racheal scores and lifetime risk: 1. A Racheal score greater than 3% is considered moderate risk. If this is the case, consider specialist referral to assess eligibility for a risk reducing agent. 2. If overall lifetime risk for the development of breast cancer is 20% or higher, the patient may qualify for future screening with alternating mammogram and breast MRI. [facility], , 08/16/2024 10:36 AM. Electronically signed and approved by: Paul Miranda M.D. Radiologis
== END | disposition home or self-care (01) ==
LOC: RADMAMWWP 09:46
PROVIDERS: ATTEND Student in an Organized Health Care Education/Training Program
DX: Z12.31 Encounter for screening mammogram for malignant neoplasm of breast (principal); R92.333 Mammographic heterogeneous density, bilateral breasts; R92.1 Mammographic calcification found on diagnostic imaging of breast; Z78.0 Asymptomatic menopausal state; Z80.3 Family history of malignant neoplasm of breast
CPT/HCPCS: 77063; 77067

== ENCOUNTER → 2024-10-27 | Outpatient (CLI) | payer OTHER, BC ==
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
== END | disposition home or self-care (01) ==
LOC: RADMRIMAIN 16:00
PROVIDERS: ATTEND Orthopaedic Surgery
DX: M17.12 Unilateral primary osteoarthritis, left knee (principal); M23.92 Unspecified internal derangement of left knee